=== PATIENT | male | born 1950 | race Caucasian/White ===

== ENCOUNTER 2018-08-19 10:57 | Outpatient (REF) | payer MEDICARE, SELFPAY ==
[2018-08-19 21:25] LABS: ALT 58 U/L (12-78); Anion Gap 11.3 mmol/L (3-11); BUN 27 mg/dL (7-18); CO2 26.7 mmol/L (21.0-32.0); CREATININE 1.65 mg/dL (0.70-1.30); Calcium 9.4 mg/dL (8.5-10.1); Chloride 99 mmol/L (98-107); Cholesterol 220 mg/dL (50-200); Estimated GFR 41.95 (mL/min/1.73m2); Glucose 165 mg/dL (70-100); HDL Cholesterol 37 mg/dL (40-60); LDL CHOLESTEROL 137 mg/dL (<100); Potassium 4.5 mmol/L (3.5-5.1); Sodium 137 mmol/L (136-145); Triglyceride 244 mg/dL (30-150)
[2018-08-19 21:31] LABS: COMMENT (LAB VIEW ONLY) 359.46 mg/dL; Microalb ug/mg Crea 5.2 ug/mg Cr
== END 2018-08-19 11:17 ==
LOC: NCHCN 10:57
PROVIDERS: PCP Family Medicine; Visit Provider Family Medicine
DX: I10 Essential (primary) hypertension (principal); E11.8 Type 2 diabetes mellitus with unspecified complications; E78.5 Hyperlipidemia, unspecified; E66.01 Morbid (severe) obesity due to excess calories
CPT/HCPCS: 80048; 80061; 83721; 82043; 82570; 84460

== ENCOUNTER 2018-12-17 13:13 | Outpatient (REF) | payer MEDICARE, SELFPAY ==
[2018-12-17 21:29] LABS: Abs Immature Grans 0.02 k/cumm (0.0-0.09); Absolute Basophil Count 0.04 k/cumm (0.0-0.2); Absolute Eosinophil Count 0.32 k/cumm (0.0-0.7); Absolute Lymphocyte Count 1.35 k/cumm (1.2-3.4); Absolute Monocyte Count 0.67 k/cumm (0.11-0.7); Absolute Neutrophil Count 3.59 k/cumm (1.2-6.7); Basophils % 0.7; Eosinophils % 5.3; HCT 40.5 % (40.0-50.0); HGB 13.2 g/dL (13.5-17.5); Immature Grans % 0.3; Lymphocytes % 22.5; Mean Corp. HGB Concentration 32.6 g/dL (32.0-36.0); Mean Corpuscular Hemoglobin 31.8 pg (27.0-33.0); Mean Corpuscular Volume 97.6 fL (80-95); Mean Platelet Volume 13.5 fL (8.0-11.0); Monocytes % 11.2; Platelet Count 164 x1000/uL (130-400); RBC 4.15 m/cumm (4.50-6.00); RBC Distribution Width 12.1 % (11.8-14.1); White Blood Cell Count 5.99 k/cumm (4.4-10.8)
[2018-12-17 22:05] LABS: TSH (W/Ref FT4) 0.67 uIU/mL (0.36-3.74); Vitamin B12 600 pg/mL (193-986)
[2018-12-20 05:55] LABS: Vitamin D 25 Total 45.9 ng/ml (30-100)
== END 2018-12-17 13:33 ==
LOC: NCHCN 13:13
PROVIDERS: PCP Family Medicine; Visit Provider Nurse Practitioner Family
DX: F41.8 Other specified anxiety disorders (principal); F51.05 Insomnia due to other mental disorder; F12.10 Cannabis abuse, uncomplicated; E66.01 Morbid (severe) obesity due to excess calories; F10.21 Alcohol dependence, in remission
CPT/HCPCS: 82306; 82607; 84443; 85025

== ENCOUNTER 2019-10-18 20:33 | Outpatient (REF) | payer MEDICARE, SELFPAY ==
[2019-10-18 21:09] LABS: ALT 44 U/L (16-63); AST 20 U/L (15-37); Albumin 3.7 g/dL (3.4-5.0); Alkaline Phosphatase 98 U/L (46-116); Anion Gap 4.1 mmol/L (3-11); BUN 15 mg/dL (7-18); Bilirubin, Total 0.3 mg/dL (0.2-1.0); CO2 29.9 mmol/L (21.0-32.0); CREATININE 1.74 mg/dL (0.70-1.30); Calcium 8.9 mg/dL (8.5-10.1); Calculated LDL 124 mg/dL (<100); Chloride 102 mmol/L (98-107); Cholesterol 227 mg/dL (<200); Estimated GFR 39.33 (mL/min/1.73m2); Glucose 158 mg/dL (74-106); HDL Cholesterol 36 mg/dL (40-60); Potassium 4.7 mmol/L (3.5-5.1); Sodium 136 mmol/L (136-145); Total Protein 7.1 g/dL (6.4-8.2); Triglyceride 339 mg/dL (<150)
== END 2019-10-18 20:53 ==
LOC: NCHCN 20:33
PROVIDERS: PCP Family Medicine; Visit Provider Family Medicine
DX: I10 Essential (primary) hypertension (principal); E11.8 Type 2 diabetes mellitus with unspecified complications
CPT/HCPCS: 80053; 80061

== ENCOUNTER 2020-12-04 17:57 | Outpatient (REF) | payer MEDICARE, SELFPAY ==
[2020-12-04 22:55] LABS: COMMENT (LAB VIEW ONLY) 217.77 mg/dL; Microalb ug/mg Crea 6.2 ug/mg Cr
== END 2020-12-04 17:58 | disposition home or self-care (01) ==
LOC: NCHCN 17:57
PROVIDERS: PCP Family Medicine; Visit Provider Family Medicine
DX: E11.8 Type 2 diabetes mellitus with unspecified complications (principal)
CPT/HCPCS: 82043; 82570

== ENCOUNTER 2020-12-12 12:55 | Outpatient (REF) | payer MEDICARE, SELFPAY ==
[2020-12-12 21:59] LABS: Abs Immature Grans 0.03 10^3/uL (0.0-0.06); Absolute Basophil Count 0.07 10^3/uL (0.0-0.2); Absolute Eosinophil Count 0.17 10^3/uL (0.0-0.7); Absolute Lymphocyte Count 1.08 10^3/uL (1.2-3.4); Absolute Monocyte Count 0.68 10^3/uL (0.1-0.8); Absolute Neutrophil Count 4.98 10^3/uL (1.2-6.7); Eosinophils % 2.4; HCT 45.9 % (40.0-50.0); HGB 14.8 g/dL (13.5-17.5); Immature Grans % 0.4; Lymphocytes % 15.4; MCH 31.2 pg (27.0-33.0); MCHC 32.2 % (32.0-36.0); MCV 96.8 fL (80-95); MPV 12.8 fL (8.0-11.0); Monocytes % 9.7; Neutrophils % 71.1; Nucleated RBC 0 %; Platelet Count 212 10^3/uL (130-400); RBC 4.74 10^6/uL (4.36-5.78); RDW 12.5 % (11.8-14.1); RDW-SD 44.8 fL; WBC 7.01 10^3/uL (4.4-10.8)
[2020-12-12 22:11] LABS: ALT 47 U/L (16-63); AST 27 U/L (15-37); Albumin 4.5 g/dL (3.4-5.0); Alkaline Phosphatase 148 U/L (46-116); Anion Gap 14.3 mmol/L (3-11); BUN 25 mg/dL (7-18); CO2 24.7 mmol/L (21.0-32.0); CREATININE 1.8 mg/dL (0.70-1.30); Calcium 10.8 mg/dL (8.5-10.1); Chloride 98 mmol/L (98-107); Estimated GFR 37.71 (mL/min/1.73m2); Glucose 129 mg/dL (74-106); Potassium 4.5 mmol/L (3.5-5.1); Sodium 137 mmol/L (136-145); Total Protein 8.3 g/dL (6.4-8.2)
[2020-12-13 18:20] LABS: PSA, Screening 0.9 ng/mL (0.0-4.5)
== END 2020-12-12 12:56 | disposition home or self-care (01) ==
LOC: NCHCN 12:55
PROVIDERS: PCP Family Medicine; Visit Provider Internal Medicine
DX: F41.1 Generalized anxiety disorder (principal); M25.511 Pain in right shoulder; Z12.5 Encounter for screening for malignant neoplasm of prostate
CPT/HCPCS: 80053; 84153; 85025

== ENCOUNTER 2020-12-28 20:38 | Outpatient (REF) | payer MEDICARE, SELFPAY ==
[2020-12-31 13:48] LABS: Albumin 57.1 % (55.8-66.1); Total Protein 7.3 g/dL (6.3-8.2)
[2020-12-31 15:08] LABS: Immunotyping, Urine (See Note); Total Protein Urine 9 mg/dL (See Note)
== END 2020-12-28 20:39 | disposition home or self-care (01) ==
LOC: NCHCN 20:38
PROVIDERS: PCP Family Medicine; Visit Provider Family Medicine
DX: C79.51 Secondary malignant neoplasm of bone (principal); C80.1 Malignant (primary) neoplasm, unspecified; M25.511 Pain in right shoulder
CPT/HCPCS: 84156; 84166; 86335; 84165

== ENCOUNTER 2021-01-29 12:15 | Outpatient (RCR) | payer MEDICARE, SELFPAY ==
[2021-01-29 13:02] LABS: Abs Immature Grans 0.04 10^3/uL (0.0-0.06); Absolute Basophil Count 0.04 10^3/uL (0.0-0.2); Absolute Eosinophil Count 0.11 10^3/uL (0.0-0.7); Absolute Lymphocyte Count 1.07 10^3/uL (1.2-3.4); Absolute Monocyte Count 0.77 10^3/uL (0.1-0.8); Absolute Neutrophil Count 5.56 10^3/uL (1.2-6.7); Basophils % 0.5; Eosinophils % 1.4; HGB 12.3 g/dL (13.5-17.5); Immature Grans % 0.5; Lymphocytes % 14.1; MCH 30.9 pg (27.0-33.0); MCHC 31.5 % (32.0-36.0); MPV 12.3 fL (8.0-11.0); Monocytes % 10.1; Neutrophils % 73.4; Nucleated RBC 0 %; Platelet Count 183 10^3/uL (130-400); RBC 3.98 10^6/uL (4.36-5.78); RDW 12.5 % (11.8-14.1); RDW-SD 45.3 fL; WBC 7.59 10^3/uL (4.4-10.8)
[2021-01-29 13:23] LABS: ALT 29 U/L (16-63); AST 18 U/L (15-37); Albumin 3.8 g/dL (3.4-5.0); Alkaline Phosphatase 181 U/L (46-116); Anion Gap 10.2 mmol/L (3-11); BUN 12 mg/dL (7-18); Bilirubin, Total 0.8 mg/dL (0.2-1.0); CO2 25.8 mmol/L (21.0-32.0); CREATININE 1.5 mg/dL (0.70-1.30); Calcium 11.1 mg/dL (8.5-10.1); Chloride 103 mmol/L (98-107); Estimated GFR 46.54 (mL/min/1.73m2); FREE T4 1.13 ng/dL (0.76-1.46); Glucose 122 mg/dL (74-106); Potassium 3.5 mmol/L (3.5-5.1); Sodium 139 mmol/L (136-145); TSH 1.07 uIU/mL (0.36-3.74); Total Protein 7.9 g/dL (6.4-8.2)
== END 2021-02-14 23:59 | disposition home or self-care (01) ==
LOC: INF 12:15
PROVIDERS: PCP Family Medicine; Visit Provider Internal Medicine
DX: C64.1 Malignant neoplasm of right kidney, except renal pelvis (principal); R94.6 Abnormal results of thyroid function studies
CPT/HCPCS: 36415; 80053; 84439; 84443; 85025

== ENCOUNTER 2021-04-02 21:59 | Outpatient (REF) | payer MEDICARE, SELFPAY ==
[2021-04-02 21:56] LABS: BUN 8 mg/dL (7-18); CREATININE 0.9 mg/dL (0.70-1.30); Potassium 4.1 mmol/L (3.5-5.1)
== END 2021-04-02 22:00 | disposition home or self-care (01) ==
LOC: LBN 21:59
PROVIDERS: PCP Family Medicine; Visit Provider Family Medicine
DX: C64.9 Malignant neoplasm of unspecified kidney, except renal pelvis (principal)
CPT/HCPCS: 84520; 82565; 84132

== ENCOUNTER 2022-03-13 21:17 | Outpatient (REF) | payer MEDICARE, SELFPAY ==
[2022-03-13 21:27] LABS: Anion Gap 6.3 mmol/L (3-11); BUN 9 mg/dL (7-18); CO2 29.7 mmol/L (21.0-32.0); CREATININE 1.1 mg/dL (0.70-1.30); Calcium 9.2 mg/dL (8.5-10.1); Chloride 100 mmol/L (98-107); Estimated GFR 72.22 (mL/min/1.73m2); Glucose 114 mg/dL (74-106); Potassium 4.3 mmol/L (3.5-5.1); Sodium 136 mmol/L (136-145)
== END 2022-03-13 21:18 | disposition home or self-care (01) ==
LOC: NCHCN 21:17
PROVIDERS: PCP Family Medicine; Visit Provider Family Medicine
DX: I10 Essential (primary) hypertension (principal)
CPT/HCPCS: 80048

== ENCOUNTER 2022-08-28 13:25 | Outpatient (REF) | payer MEDICARE, MEDICAID, SELFPAY ==
--- NOTE | 2022-08-28 13:59 | DI.RAD_ITS ---
Exam(s) XR PORTABLE CHEST AP EXAM: XR PORTABLE CHEST AP CLINICAL HISTORY: PICC TECHNIQUE: 2D digital imaging was performed. COMPARISON: No exams were available for comparison FINDINGS: Exam is limited by patient body habitus. A PICC line is been placed via the right arm. The tip projects in the lower superior vena cava. LUNGS: Clear. No pleural abnormality seen. HEART: Enlarged. Tortuous. AORTA: Normal diameter. BONES: Cystic lesions in the clavicles. Partially visible lesion in the upper right humerus. Spine not well seen. Soft tissues: Limited evaluation. IMPRESSION: PICC line projects in superior vena cava. DATA REPOSITORY: RADIATION DOSE DELIVERED:
--- NOTE | 2022-08-28 15:43 | NUR.NOTE ---
MULTIPLE ATTEMPTS WEERE MADE TO DOCUMENT A PICC LINE THAT I INSERTED TODAY. SOMEWHERE IN THIS CHART IS THE INFORMATION RELAVENT TO THE PROCEDURE. TOWARD THE END OF MY PICC LINE DOCUMENTATIION THE COMPUTER FROZE. I HAVE ALL THE INFORMATION NEEDED IF YOU CAN'T FIND THE FORM IN HERE SOMEWHERE. WILLY CAMPBELL RN
== END 2022-08-28 13:26 | disposition home or self-care (01) ==
LOC: PTH 13:25
PROVIDERS: PCP Family Medicine; Visit Provider Nurse Practitioner
DX: C64.1 Malignant neoplasm of right kidney, except renal pelvis (principal); Z45.2 Encounter for adjustment and management of vascular access device; I51.7 Cardiomegaly; C79.51 Secondary malignant neoplasm of bone
CPT/HCPCS: 36569; 71045

== ENCOUNTER 2022-10-20 02:40 | Outpatient (RCR) | payer MEDICARE, MEDICAID, SELFPAY ==
[2022-10-20] MEDS: Alteplase 2 MG VIAL IJ (11:10)
[2022-10-20] MEDS: Water,Injection,Sterile 10 ML VIAL 2.2 ML IJ (11:10)
[2022-10-20] MEDS: Normal Saline Flush 10 ML SYR IVP (11:19)
== END 2022-11-14 23:59 | disposition home or self-care (01) ==
LOC: INF 02:40
PROVIDERS: PCP Family Medicine; Visit Provider Internal Medicine
DX: Z45.2 Encounter for adjustment and management of vascular access device (principal)
CPT/HCPCS: J2997

== ENCOUNTER 2022-10-31 07:43 | Outpatient (CLI) | payer MEDICARE, MEDICAID, SELFPAY ==
--- NOTE | 2022-10-31 17:25 | DI.RAD_ITS ---
Exam(s) XR PORTABLE CHEST AP POST LINE EXAM: XR PORTABLE CHEST AP POST LINE CLINICAL HISTORY: PICC placement. TECHNIQUE: 2D digital imaging was performed. COMPARISON: CR XR PORTABLE CHEST AP from 08/28/2022 FINDINGS: Single AP portable view. Left PICC line distal tip is at the SVC RA junction. Heart size is upper normal. The mediastinum is not widened. There is atelectasis platelike atelectasis in the lingular segment of the left lung. No confluent infiltrates. Healed right-sided rib fracture versus expansile lesion in lower right rib . There appears to be a healed fracture site in the proximal diaphysis of the humerus right-side. Expansile lytic lesion noted in the midshaft of the right clavicle. IMPRESSION: Findings as above. Recommend nonportable PA and lateral views when clinically possible. Expansile osseous lesions in the right clavicle and right rib cage. DATA REPOSITORY: RADIATION DOSE DELIVERED:
--- NOTE | 2022-10-31 17:51 | DI.VRAD_ITS ---
PROCEDURE INFORMATION: Exam: XR Chest Exam date and time: 10/31/2022 5:15 PM Age: 72 years old Clinical indication: Device placement; Picc; Additional info: Picc line placement TECHNIQUE: Imaging protocol: Radiologic exam of the chest. Views: 1 view. COMPARISON: CR XR PORTABLE CHEST AP 08/28/2022 2:50 PM FINDINGS: Tubes, catheters and devices: A left upper extremity PICC line is in position. The tip is appropriately placed with location at the superior cavoatrial junction. Lungs: Left basilar linear atelectasis. No acute lung infiltrates or edema. Pleural spaces: Unremarkable. No pleural effusion. No pneumothorax. Heart/Mediastinum: Normal heart size. Vasculature: Ectasia of the thoracic aorta. Bones/joints: Right posterior 8th and 9th rib lesions. Possibly old fractures with healing. Can not exclude focal rib lesions related to neoplasm. Recommend clinical correlation. Proximal right humerus with an appearance suggesting a healing old fracture. Degenerative thoracic spine features. Right clavicular expansile lesion concerning for a neoplastic process. IMPRESSION: 1. PICC line is well positioned via the left upper extremity with tip at the superior cavoatrial junction. 2. Left lung base linear atelectasis versus scarring. 3. Right posterior 8th and 9th ribs with irregularities which could represent old healing fractures. Possibility of focal rib lesions with expansion can not be excluded. Recommend clinical correlation. 4. Old right humeral fracture with healing changes. 5. Right clavicular expansile lesion concerning for a neoplastic process. Dictated and Authenticated by: Bandar Jenkins MD. Ordering:CELSO Pablo MD
== END 2022-10-31 07:44 | disposition home or self-care (01) ==
LOC: INF 07:47
PROVIDERS: PCP Family Medicine; Visit Provider Family Medicine
DX: C64.1 Malignant neoplasm of right kidney, except renal pelvis (principal); G89.3 Neoplasm related pain (acute) (chronic)
CPT/HCPCS: 36569; 71045

== ENCOUNTER 2023-01-26 01:40 | Outpatient (RCR) | payer MEDICARE, MEDICAID, SELFPAY ==
--- NOTE | 2023-01-26 12:15 | DI.RAD_ITS ---
Exam(s) XR PORTABLE CHEST AP POST LINE EXAM: XR PORTABLE CHEST AP POST LINE CLINICAL HISTORY: VERIFY PICC PLACEMENT. TECHNIQUE: 2D digital imaging was performed. COMPARISON: CR,XR XR PORTABLE CHEST AP POST LINE from 10/31/2022 FINDINGS: Two AP portable views. Cardiomegaly. Is times not widened. There is some mild infiltrate in the right lung base. Left kortney g clear. Distal tip of PICC line is in the lower SVC on 1 image and at the SVC-RA junction on the ot her image. IMPRESSION: PICC line in satisfactory position. Mild infiltrate noted in the right lung base. DATA REPOSITORY: RADIATION DOSE DELIVERED:
--- NOTE | 2023-01-26 12:30 | DI.RAD_ITS ---
Exam(s) XR LINE PLACEMENT PICC/CVA EXAM: XR LINE PLACEMENT PICC/CVA CLINICAL HISTORY: recheck PICC line placement. TECHNIQUE: 2D digital imaging was performed. COMPARISON: CR XR PORTABLE CHEST AP POST LINE from 01/26/2023 FINDINGS: Portable view reveals the PICC line slightly lower than on the original view performed few minutes pr ior. Cardiomegaly again noted. Mild infiltrate in the right lung base. Mildly elevated right hemidiaphra gm. No pleural effusions. No pneumothorax. Distal tip of the PICC line is now the SVC-RA junction. IMPRESSION: As above. DATA REPOSITORY: RADIATION DOSE DELIVERED:
== END 2023-02-14 23:59 | disposition home or self-care (01) ==
LOC: INF 01:40
PROVIDERS: PCP Family Medicine; Visit Provider Family Medicine
DX: C64.1 Malignant neoplasm of right kidney, except renal pelvis (principal)
CPT/HCPCS: 36569; 36573; 71045; 77001

== ENCOUNTER 2023-05-26 11:06 | Inpatient (IN) | payer OTHER, SELFPAY ==
--- OUTSIDE RECORDS SUMMARY | 2023-05-26 12:07 | XMS_ITS | CCD ---
Author Name Unknown Address [address] [place] [address] [id number] Organization Unknown Address [address] [place] [address] [id number] Care Team Providers Care Special Technical Operations Officer Name Role Phone SONIDO PEREIRA, TORIE Abebe Attending Physician [phone] KEIKO ROLAND MD Er Physician [phone] KEIKO ROLAND MD Rounding (Secondary) Physician [phone] Vital Signs Vital Sign Value Unit Date/Time Recent/Initial ? BMI (Body Mass Index) 36.45 kg/m^2 02/04/2021 22: 43 Initial VS Weight Measured 239.7 lbs 02/04/2021 22:43 Ini tial VS Height 68 in 02/04/2021 22:43 Initial VS BSA (Body Surface Area) 2.28 m^2 02/04/2021 2 2:43 Initial VS BP Systolic 135 mmHg 02/04/2021 22:56 Initial VS BP Diastolic 63 mmHg 02/04/2021 22:56 Initia l VS Respiratory Rate 16 bpm 02/04/2021 22:56 In itial VS Heart Rate 79 bpm 02/04/2021 22:56 Initial VS O2 % BldC Oximetry 94 % 02/04/2021 22:56 Initial VS Body Temperature 36.3 degrees 02/04/2021 22:56 In itial VS Weight Measured 233.1 lbs 02/12/2021 15:06 Mos t Recent VS BP Systolic 142 mmHg 02/14/2021 09:01 Most Re cent VS BP Diastolic 66 mmHg 02/14/2021 09:01 Most R ecent VS Respiratory Rate 18 bpm 02/14/2021 09:[address] Recent VS Heart Rate 90 bpm 02/14/2021 09:01 Most Rec ent VS O2 % BldC Oximetry 91 % 02/14/2021 09:01 Most Recent VS Body Temperature 36.6 degrees 02/14/2021 09:[address] Recent VS Allergies Allergy Code Allergy Type Reaction Status LITHIUM 6448 Drug allergy IT DIDN'T GO WELL Act justen Procedures Unknown or Not Available. History of Immunizations Unknown or Not Available. Problems Problem Code Start Date Resolved Date Status Pathological fracture of rig ht humerus [id number] Active Pathological fracture of right rib [id number] Active Metastasis to bone 20324705 Active Renal cell carcinoma 513845190 Acti ve Cancer associated pain 04054375991701 Active Results BASIC METABOLIC PANEL (BMP) - Collect Date/Time: 02/05/2021 10:55 Test Name Code Test Result Test Units Test Ref Rang e GLUCOSE 2345-7 117 mg/dL L=70 H=116 BUN 3094-0 12 mg/dL L=6 H=25 CREATININE 2160-0 1.16 mg/dL L=0.67 H=1.17 SODIUM SERUM 2951-2 137 mmol/L L=136 H=145 POTASSIUM SERUM 2823-3 3.5 mmol/L L=3.4 H=5 .2 CHLORIDE SERUM 2075-0 99 mmol/L L=96 H=110 CARBON DIOXIDE (CO2) 8-9 25 mmol/L L=22 H=34 ANION GAP 00929-5 13.3 mmol/L CALCIUM SERUM 57131-6 7.5 mg/dL L=8.2 H=10. 2 AGE 70 years eGFR (non-Afr.Amer.) 58291-5 63 mL/min eGFR (Afr-Gabonese) 68845-4 76 mL/min BASIC METABOLIC PANEL (BMP) - Collect Date/Time: 02/04/2021 14:10 Test Name Code Test Result Test Units Test Ref Rang e GLUCOSE 2345-7 128 mg/dL L=70 H=116 BUN 3094-0 9 mg/dL L=6 H=25 CREATININE 2160-0 1.23 mg/dL L=0.67 H=1.17 SODIUM SERUM 2951-2 140 mmol/L L=136 H=145 POTASSIUM SERUM 2823-3 3.3 mmol/L L=3.4 H=5 .2 CHLORIDE SERUM 2075-0 101 mmol/L L=96 H=110 CARBON DIOXIDE (CO2) 2027-9 22 mmol/L L=22 H=34 ANION GAP 81534-5 17.1 mmol/L CALCIUM SERUM 83128-1 8.0 mg/dL L=8.2 H=10. 2 AGE 70 years eGFR (non-Afr.Amer.) 45812-5 59 mL/min eGFR (Afr-Gabonese) 93866-2 71 mL/min GLUCOSE FINGER/HEEL CAPILLAR Y - Collect Date/Time: 02/11/2021 11:53 Test Name Code Test Result Test Units Test Ref Rang e GLUCOSE CAP 125 mg/dL L=70 H=116 GLUCOSE FINGER/HEEL CAPILLAR Y - Collect Date/Time: 02/11/2021 08:02 Test Name Code Test Result Test Units Test Ref Rang e GLUCOSE CAP 101 mg/dL L=70 H=116 GLUCOSE FINGER/HEEL CAPILLAR Y - Collect Date/Time: 02/08/2021 20:18 Test Name Code Test Result Test Units Test Ref Rang e GLUCOSE CAP 121 mg/dL L=70 H=116 GLUCOSE FINGER/HEEL CAPILLAR Y - Collect Date/Time: 02/08/2021 16:37 Test Name Code Test Result Test Units Test Ref Rang e GLUCOSE CAP 108 mg/dL L=70 H=116 GLUCOSE FINGER/HEEL CAPILLAR Y - Collect Date/Time: 02/08/2021 12:02 Test Name Code Test Result Test Units Test Ref Rang e GLUCOSE CAP 110 mg/dL L=70 H=116 GLUCOSE FINGER/HEEL CAPILLAR Y - Collect Date/Time: 02/08/2021 07:50 Test Name Code Test Result Test Units Test Ref Rang e GLUCOSE CAP 94 mg/dL L=70 H=116 GLUCOSE FINGER/HEEL CAPILLAR Y - Collect Date/Time: 02/07/2021 20:46 Test Name Code Test Result Test Units Test Ref Rang e GLUCOSE CAP 120 mg/dL L=70 H=116 GLUCOSE FINGER/HEEL CAPILLAR Y - Collect Date/Time: 02/07/2021 17:24 Test Name Code Test Result Test Units Test Ref Rang e GLUCOSE CAP 111 mg/dL L=70 H=116 GLUCOSE FINGER/HEEL CAPILLAR Y - Collect Date/Time: 02/07/2021 12:34 Test Name Code Test Result Test Units Test Ref Rang e GLUCOSE CAP 124 mg/dL L=70 H=116 GLUCOSE FINGER/HEEL CAPILLAR Y - Collect Date/Time: 02/07/2021 07:24 Test Name Code Test Result Test Units Test Ref Rang e GLUCOSE CAP 96 mg/dL L=70 H=116 GLUCOSE FINGER/HEEL CAPILLAR Y - Collect Date/Time: 02/06/2021 16:49 Test Name Code Test Result Test Units Test Ref Rang e GLUCOSE CAP 168 mg/dL L=70 H=116 GLUCOSE FINGER/HEEL CAPILLAR Y - Collect Date/Time: 02/06/2021 11:44 Test Name Code Test Result Test Units Test Ref Rang e GLUCOSE CAP 119 mg/dL L=70 H=116 GLUCOSE FINGER/HEEL CAPILLAR Y - Collect Date/Time: 02/06/2021 07:30 Test Name Code Test Result Test Units Test Ref Rang e GLUCOSE CAP 86 mg/dL L=70 H=116 GLUCOSE FINGER/HEEL CAPILLAR Y - Collect Date/Time: 02/05/2021 20:50 Test Name Code Test Result Test Units Test Ref Rang e GLUCOSE CAP 110 mg/dL L=70 H=116 GLUCOSE FINGER/HEEL CAPILLAR Y - Collect Date/Time: 02/05/2021 16:59 Test Name Code Test Result Test Units Test Ref Rang e GLUCOSE CAP 107 mg/dL L=70 H=116 GLUCOSE FINGER/HEEL CAPILLAR Y - Collect Date/Time: 02/05/2021 12:30 Test Name Code Test Result Test Units Test Ref Rang e GLUCOSE CAP 115 mg/dL L=70 H=116 CBC W/ DIFFERENTIAL - Collec t Date/Time: 02/05/2021 10:55 Test Name Code Test Result Test Units Test Ref Rang e WBC 6690-2 7.71 th/cmm L=5.00 H=10.00 NEUT % 66.7 % L=40.0 H=80.0 LYMPH % 15.7 % L=10.0 H=50.0 MONO % 46938-6 15.0 % L=2.0 H=12.0 EOS % 1.7 % L=0.0 H=8.0 BASO % 0.6 % L=0.0 H=3.0 IG % 2514-8 0.3 % L=0.0 H=1.1 NRBC % 42298-4 0.0 % L=0.0 H=0.0 NEUT abs count 751-8 5.1 th/cmm L=1.6 H=8. 4 LYMPH abs count 731-0 1.2 th/cmm L=1.5 H=4 .0 MONO abs count 742-7 1.2 th/cmm L=0.2 H=1. 0 EOS abs count 711-2 0.1 th/cmm L=0.0 H=0.5 BASO abs count 704-7 0.1 th/cmm L=0.0 H=0. 2 IG abs count 93223-4 0.0 th/cmm L=0.0 H=0.1 NRBC abs count 17293-2 0.0 mil/cmm L=0.0 H=0. 0 RBC 789-8 3.65 mil/cmm L=4.30 H=6.20 HEMOGLOBIN 718-7 11.3 gm/dL L=13.0 H=17.0 HEMATOCRIT 4544-3 35 % L=45 H=52 MCV 787-2 97 fL L=82 H=92 MCH 785-6 31.0 pg L=27.0 H=31.0 MCHC 786-4 32.0 % L=32.0 H=36.0 RDW-SD 788-0 46.7 fL L=39.0 H=49.0 PLATELET COUNT 777-3 188 th/cmm L=150 H=45 0 CBC W/ DIFFERENTIAL - Collec t Date/Time: 02/04/2021 14:10 Test Name Code Test Result Test Units Test Ref Rang e WBC 6690-2 9.01 th/cmm L=5.00 H=10.00 NEUT % 81.5 % L=40.0 H=80.0 LYMPH % 7.7 % L=10.0 H=50.0 MONO % 15403-6 9.5 % L=2.0 H=12.0 EOS % 0.3 % L=0.0 H=8.0 BASO % 0.7 % L=0.0 H=3.0 IG % 2514-8 0.3 % L=0.0 H=1.1 NRBC % 49975-4 0.0 % L=0.0 H=0.0 NEUT abs count 751-8 7.3 th/cmm L=1.6 H=8. 4 LYMPH abs count 731-0 0.7 th/cmm L=1.5 H=4 .0 MONO abs count 742-7 0.9 th/cmm L=0.2 H=1. 0 EOS abs count 711-2 0.0 th/cmm L=0.0 H=0.5 BASO abs count 704-7 0.1 th/cmm L=0.0 H=0. 2 IG abs count 61960-3 0.0 th/cmm L=0.0 H=0.1 NRBC abs count 35526-5 0.0 mil/cmm L=0.0 H=0. 0 RBC 789-8 3.85 mil/cmm L=4.30 H=6.20 HEMOGLOBIN 718-7 11.8 gm/dL L=13.0 H=17.0 HEMATOCRIT 4544-3 37 % L=45 H=52 MCV 787-2 97 fL L=82 H=92 MCH 785-6 30.6 pg L=27.0 H=31.0 MCHC 786-4 31.6 % L=32.0 H=36.0 RDW-SD 788-0 46.5 fL L=39.0 H=49.0 PLATELET COUNT 777-3 198 th/cmm L=150 H=45 0 DONTE COVID RHEONIX - Colle ct Date/Time: 02/04/2021 20:30 Test Name Code Test Result Test Units Test Ref Rang e SOURCE= Anterior nasal N/A Tier- INPATIENT/ED N/A SARS COV2 RNA: 57596-3 NEGATIVE N/A REFERENCE RANGE: NEGAT Active Medications Medication Code Dose Units Frequency Route Modificatio n Start Date/Time Acetaminophen 500MG Oral Tablet 979682 2 TABLET NEEDED THREE TIMES A DAY ORAL 02/14/2021 14:16 Prescription Detail TAKE 2 TABLET ORAL NEEDED THREE TIMES A DAY Aspirin 81MG Oral Tablet, Enteric Coated 029544 81 MILLIGRAMS DAILY ORAL 01/18 14:15 Prescription Detail TAKE 81 MILLIGRAMS ORAL DAILY Atorvastatin Calcium 80MG Oral Tablet 244879 80 MILLIGRAMS BEDTIME ORAL 021 14:15 Prescription Detail TAKE 80 MILLIGRAMS ORAL BEDTIME busPIRone 15MG Oral Tablet 092702 1.5 TABLET TWICE A DAY ORAL 02/14/2021 14:15 Prescription Detail TAKE 1.5 TABLET ORAL TWICE A DAY Citalopram 40MG Oral Tablet 415249 40 MILLIGRAMS DAILY ORAL 14:15 Prescription Detail TAKE 40 MILLIGRAMS ORAL DAILY fentaNYL Transdermal System 25MCG/1HR Transdermal Patch, Extended Release 926160 25 MICROGRAM EVERY 72 HOURS TRANSDERMAL 02/14/2021 14:15 Prescription Detail APPLY 25 MICROGRAM TRANSDERMAL EVERY 72 HOURS glipiZIDE 5MG Oral Tablet 490145 5 MILLIGRAMS EVERY EVENING ORAL 02/14/2021 14:15 Prescription Detail TAKE 5 MILLIGRAMS ORAL EVERY EVENING HYDROmorphone HCl 4MG Oral Tablet 098865 1 TABLET NEEDED EVERY 4 HOURS ORAL 02/14/2021 14:15 Prescription Detail TAKE 1 TABLET ORAL NEEDED EVERY 4-6 H OURS FOR PAIN Jardiance 25MG Oral Tablet 2531359 25 MILLIGRAMS DAILY ORAL 021 14:15 Prescription Detail TAKE 25 MILLIGRAMS ORAL DAILY Metoprolol Succinate 25MG Oral Tablet, Extended Release 614446 25 MILLIGRAMS DAILY ORAL 14:15 Prescription Detail TAKE 25 MILLIGRAMS ORAL DAILY Mirtazapine 15MG Oral Tablet 756233 15 MILLIGRAMS BEDTIME ORAL 14:15 Prescription Detail TAKE 15 MILLIGRAMS ORAL BEDTIME Omeprazole 20MG Oral Capsule, Delayed Release 921674 20 MILLIGRAMS DAILY ORAL 14:15 Prescription Detail TAKE 20 MILLIGRAMS ORAL DAILY fentaNYL Transdermal System 100MCG/1HR Transdermal Patch, Extended Release 868006 100 MICROGRAM EVERY 72 HOURS TRANSDERMAL 02/14/2021 14:14 Prescription Detail APPLY 100 MICROGRAM TRANSDERMAL EVERY 72 HOURS Senna Lax 8.6MG Oral Tablet 198484 8.6 MILLIGRAMS TWICE A DAY ORAL 02/14/2021 14:14 Prescription Detail TAKE 8.6 MILLIGRAMS ORAL TWICE A DAY Valium 5MG Oral Tablet 797312 1 TABLET NEEDED THREE TIMES A DAY ORAL 02/14/2021 14:14 Prescription Detail TAKE 1 TABLET ORAL NEEDED THREE TIMES A DAY FOR MUSCLE SPASM OR ANXIETY PEG 3350 17GM/1Dose Oral Powder for Solution 093625 17 GRAMS NEEDED DAILY ORAL 02/14/2021 14:13 Prescription Detail TAKE 17 GRAMS ORAL NEEDED DAILY FOR C ONSTIPATION Medications Administered During Visit Medication Dose Units Frequency Route Date/Time of Last Dose SODIUM CHLORIDE 0.9% 10ML FLUSH 2 ML Q8H IVP 02/09/2021 16:5 6 ACETAMINOPHEN INJ SDV: 1000MG/100ML PRN Q6H IVPB 02/09/2021 16:4 2 HYDROmorphone INJ SYRINGE: 0.5MG/0.5ML 1 MG PRN Q1H IVP 02/06/2021 20:3 8 SENNA CONC TABLET: 8.6MG 8.6 MG PRN DAILY PO 02/05/2021 17:41 POLYETHYLENE GLYCOL PACKET 3350:17GM 17 GRAMS PRN DAILY PO 02/05/2021 17:4 1 LORazepam INJ SYRINGE: 2MG/ML 0.5 MG PRN Q4H IVP 02/05/2021 05:5 3 FentaNYL TRANSDERMAL PATCH: 25MCG/HR 25 MCG Q72H TRANSDERMAL 02/04/2021 22:3 3 FentaNYL PATCH NURSING VERIFICATION 1 EA Q8H TRANSDERMAL 02/14/2021 08:3 4 MIRTAZAPINE ORAL DISINT TABLET: 15MG 15 MG BEDTIME PO 02/13/2021 19:2 1 PANTOPRAZOLE TABLET: 40MG 40 MG Q7AM PO 02/14/2021 08:30 METOPROLOL SUCCINATE TABLET ER: 25MG 25 MG DAILY PO 02/14/2021 08:3 1 CITALOPRAM TABLET: 20MG 40 MG DAILY PO 02/14/2021 08:30 ASPIRIN TABLET E.C.: 81MG 81 MG DAILY PO 02/14/2021 08:30 ATORVASTATIN TABLET: 40MG 80 MG BEDTIME PO 02/13/2021 19:21 BusPIRone TABLET : 15MG 22.5 MG BID PO 02/14/2021 08:31 MIRTAZAPINE ORAL DISINT TABLET: 15MG 15 MG X1 PO 02/04/2021 23:1 2 BusPIRone TABLET : 15MG 22.5 MG X1 PO 02/04/2021 23:12 GlipiZIDE TABLET: 5MG 5 MG BEDTIME PO 02/13/2021 19:51 NF-Jardiance Oral Tablet 25MG 25 MG DAILY PO 02/14/2021 08:3 3 INSULIN LISPRO INJ MDV: 1000UNITS/10ML PRN SUBCUTANEOUSLY 02/08/2021 20:28 FentaNYL TRANSDERMAL PATCH: 50MCG/HR 50 MCG Q72H TRANSDERMAL 02/05/2021 17:1 9 DIAZEPAM TABLET: 5MG 5 MG PRN Q4H PO 02/08/2021 00:14 SENNA CONC TABLET: 8.6MG 8.6 MG BID PO 02/14/2021 08:31 FentaNYL TRANSDERMAL PATCH: 100MCG/HR 100 MCG Q72H TRANSDERMAL 02/12/2021 16:4 4 HYDROmorphone TABLET: 4MG 4 MG PRN Q4H PO 02/14/2021 16:25 DIAZEPAM TABLET: 5MG 5 MG PRN Q4H PO 02/13/2021 23:36 ACETAMINOPHEN TABLET: 325MG 975 MG PRN Q6H PO 02/14/2021 08:30 FentaNYL PATCH REMOVAL REMINDER 1 EA Q72H TRANSDERMAL 02/12/2021 16:4 6 MORPHINE INJ SYRINGE: 10MG/ML 10 MG X1 SUBQ 02/12/2021 02:3 0 FentaNYL TRANSDERMAL PATCH: 100MCG/HR 100 MCG Q72H TRANSDERMAL 02/13/2021 12:3 9 FentaNYL TRANSDERMAL PATCH: 25MCG/HR 25 MCG Q72H TRANSDERMAL 02/13/2021 12:3 9 Encounters Encounter Diagnosis Diagnosis Code Start Date Pathological fracture, right humerus, initial encounter for fracture [id number] 02/06/2021 Social History Smoking Status Code Start Date End Date Former smoker [id number] Patient Decision Aids Patient Decision Aid Narcotic Safety Discharge Instructions You were admitted to [facility] on 02/06/2021 12:31 with a principal diagnosis of Pathological fracture, right humerus, initial encounter for fracture You had the following tests done:GLUCOSE FINGER/HEEL CAPILLARYGLUCOSE FINGER/HEEL CAPILLARYGLUCOSE FINGER/HEEL CAPILLARYGLUCOSE FINGER/HEEL CAPILLARYGLUCOSE FINGER/HEEL CAPILLARYGLUCOSE FINGER/HEEL CAPILLARYGLUCOSE FINGER/HEEL CAPILLARYGLUCOSE FINGER/HEEL CAPILLARYGLUCOSE FINGER/HEEL CAPILLARYGLUCOSE FINGER/HEEL CAPILLARYGLUCOSE FINGER/HEEL CAPILLARYGLUCOSE FINGER/HEEL CAPILLARYGLUCOSE FINGER/HEEL CAPILLARYGLUCOSE FINGER/HEEL CAPILLARYGLUCOSE FINGER/HEEL CAPILLARYGLUCOSE FINGER/HEEL CAPILLARYBASIC METABOLIC PANEL (BMP)CBC W/ [facility]ENTIALW[facility] COVID RHEONIXBASIC METABOLIC PANEL (BMP)CBC W/ DIFFERENTIAL You were discharged from [facility] on 02/14/2021 16:30 Should you have any questions prior to discharge, please contact a member of your healthcare team. If you have left the hospital and have any questions, please contact your primary care physician. Chief Complaint and Reason For Visit Chief Complaint Date of Onset BONE METS WITH MULTIPLE PATHOLOGICAL FRA CTURES 02/04/2021 Function Status Unknown or Not Available. Plan of Care Unknown or Not Available. Referral/Transition of Care Unknown or Not Available.
--- OUTSIDE RECORDS SUMMARY | 2023-05-26 12:07 | XMS_ITS | CCD ---
Author Name Unknown Address [address] [place] [address] [id number] Organization Unknown Address [address] [place] [address] [id number] Care Team Providers Care Real Estate Services Coordinator Name Role Phone SONIDO PEREIRA, TORIE Abebe Attending Physician [phone] KEIKO ROLAND MD Rounding (Secondary) Physician [phone] Vital Signs Unknown or Not Available. Allergies Allergy Code Allergy Type Reaction Status LITHIUM 6448 Drug allergy IT DIDN'T GO WELL Act justen Procedures Unknown or Not Available. History of Immunizations Unknown or Not Available. Problems Problem Code Start Date Resolved Date Status Pathological fracture of rig ht humerus [id number] Active Pathological fracture of rig ht rib 11110677660292022 Active Metastasis to bone 19739198 Active Renal cell carcinoma 532944010 Acti ve Cancer associated pain 31018877056332 Active CARPAL TUNNEL SYNDROME 95450797 02/05/2021 Re solved Results Unknown or Not Available. Active Medications Medication Code Dose Units Frequency Route Modificatio n Start Date/Time Acetaminophen 500MG Oral Tablet 207649 2 TABLET NEEDED THREE TIMES A DAY ORAL 02/14/2021 14:16 Prescription Detail TAKE 2 TABLET ORAL NEEDED THREE TIMES A DAY Aspirin 81MG Oral Tablet, Enteric Coated 261013 81 MILLIGRAMS DAILY ORAL 01/18 14:15 Prescription Detail TAKE 81 MILLIGRAMS ORAL DAILY Atorvastatin Calcium 80MG Oral Tablet 804743 80 MILLIGRAMS BEDTIME ORAL 021 14:15 Prescription Detail TAKE 80 MILLIGRAMS ORAL BEDTIME busPIRone 15MG Oral Tablet 494793 1.5 TABLET TWICE A DAY ORAL 02/14/2021 14:15 Prescription Detail TAKE 1.5 TABLET ORAL TWICE A DAY Citalopram 40MG Oral Tablet 844185 40 MILLIGRAMS DAILY ORAL 14:15 Prescription Detail TAKE 40 MILLIGRAMS ORAL DAILY fentaNYL Transdermal System 25MCG/1HR Transdermal Patch, Extended Release 011714 25 MICROGRAM EVERY 72 HOURS TRANSDERMAL 02/14/2021 14:15 Prescription Detail APPLY 25 MICROGRAM TRANSDERMAL EVERY 72 HOURS glipiZIDE 5MG Oral Tablet 691120 5 MILLIGRAMS EVERY EVENING ORAL 02/14/2021 14:15 Prescription Detail TAKE 5 MILLIGRAMS ORAL EVERY EVENING HYDROmorphone HCl 4MG Oral Tablet 760239 1 TABLET NEEDED EVERY 4 HOURS ORAL 02/14/2021 14:15 Prescription Detail TAKE 1 TABLET ORAL NEEDED EVERY 4-6 H OURS FOR PAIN Jardiance 25MG Oral Tablet 2665718 25 MILLIGRAMS DAILY ORAL 021 14:15 Prescription Detail TAKE 25 MILLIGRAMS ORAL DAILY Metoprolol Succinate 25MG Oral Tablet, Extended Release 458485 25 MILLIGRAMS DAILY ORAL 14:15 Prescription Detail TAKE 25 MILLIGRAMS ORAL DAILY Mirtazapine 15MG Oral Tablet 469101 15 MILLIGRAMS BEDTIME ORAL 14:15 Prescription Detail TAKE 15 MILLIGRAMS ORAL BEDTIME Omeprazole 20MG Oral Capsule, Delayed Release 013739 20 MILLIGRAMS DAILY ORAL 14:15 Prescription Detail TAKE 20 MILLIGRAMS ORAL DAILY fentaNYL Transdermal System 100MCG/1HR Transdermal Patch, Extended Release 700415 100 MICROGRAM EVERY 72 HOURS TRANSDERMAL 02/14/2021 14:14 Prescription Detail APPLY 100 MICROGRAM TRANSDERMAL EVERY 72 HOURS Senna Lax 8.6MG Oral Tablet 621811 8.6 MILLIGRAMS TWICE A DAY ORAL 02/14/2021 14:14 Prescription Detail TAKE 8.6 MILLIGRAMS ORAL TWICE A DAY Valium 5MG Oral Tablet 398210 1 TABLET NEEDED THREE TIMES A DAY ORAL 02/14/2021 14:14 Prescription Detail TAKE 1 TABLET ORAL NEEDED THREE TIMES A DAY FOR MUSCLE SPASM OR ANXIETY PEG 3350 17GM/1Dose Oral Powder for Solution 812087 17 GRAMS NEEDED DAILY ORAL 02/14/2021 14:13 Prescription Detail TAKE 17 GRAMS ORAL NEEDED DAILY FOR C ONSTIPATION Medications Administered During Visit Unknown or Not Available. Encounters Encounter Diagnosis Diagnosis Code Start Date Malignant neoplasm of unspec ified kidney, except renal pelvis C649 02/04/2021 Social History Unknown or Not Available. Patient Decision Aids Unknown or Not Available. Discharge Instructions You were admitted to [facility] 01 on 02/04/2021 21:10 with a principal diagnosis of Malignant neoplasm of unspecified kidney, except renal pelvis You were discharged from [facility] 01 on 02/06/2021 12:31 Should you have any questions prior to discharge, please contact a member of your healthcare team. If you have left the hospital and have any questions, please contact your primary care physician. Chief Complaint and Reason For Visit Unknown or Not Available. Function Status Unknown or Not Available. Plan of Care Unknown or Not Available. Referral/Transition of Care Unknown or Not Available.
--- OUTSIDE RECORDS SUMMARY | 2023-05-26 12:07 | XMS_ITS | CCD ---
Author Name Unknown Address [address] [place] [address] [phone] Organization Unknown Address [address] [place] [address] [phone] Care Team Providers Care Optometric Assistant Name Role Phone CLIVE HALL MD Attending Physician [phone] Vital Signs Unknown or Not Available. Allergies Unknown or Not Available. Procedures Unknown or Not Available. History of Immunizations Unknown or Not Available. Problems Problem Code Start Date Resolved Date Status Pathological fracture of rig ht humerus [id number] Active Pathological fracture of rig ht rib 51783202456322592 Active Metastasis to bone 46060418 Active Renal cell carcinoma 625707313 Acti ve Cancer associated pain 69568648654852 Active CARPAL TUNNEL SYNDROME 46994948 02/05/2021 Re solved Results Unknown or Not Available. Active Medications Medication Code Dose Units Frequency Route Modificatio n Start Date/Time Acetaminophen 500MG Oral Tablet 230091 2 TABLET NEEDED THREE TIMES A DAY ORAL 02/14/2021 14:16 Prescription Detail TAKE 2 TABLET ORAL NEEDED THREE TIMES A DAY Aspirin 81MG Oral Tablet, Enteric Coated 244972 81 MILLIGRAMS DAILY ORAL 01/18 14:15 Prescription Detail TAKE 81 MILLIGRAMS ORAL DAILY Atorvastatin Calcium 80MG Oral Tablet 148409 80 MILLIGRAMS BEDTIME ORAL 021 14:15 Prescription Detail TAKE 80 MILLIGRAMS ORAL BEDTIME busPIRone 15MG Oral Tablet 951247 1.5 TABLET TWICE A DAY ORAL 02/14/2021 14:15 Prescription Detail TAKE 1.5 TABLET ORAL TWICE A DAY Citalopram 40MG Oral Tablet 773615 40 MILLIGRAMS DAILY ORAL 14:15 Prescription Detail TAKE 40 MILLIGRAMS ORAL DAILY fentaNYL Transdermal System 25MCG/1HR Transdermal Patch, Extended Release 134693 25 MICROGRAM EVERY 72 HOURS TRANSDERMAL 02/14/2021 14:15 Prescription Detail APPLY 25 MICROGRAM TRANSDERMAL EVERY 72 HOURS glipiZIDE 5MG Oral Tablet 409244 5 MILLIGRAMS EVERY EVENING ORAL 02/14/2021 14:15 Prescription Detail TAKE 5 MILLIGRAMS ORAL EVERY EVENING HYDROmorphone HCl 4MG Oral Tablet 324700 1 TABLET NEEDED EVERY 4 HOURS ORAL 02/14/2021 14:15 Prescription Detail TAKE 1 TABLET ORAL NEEDED EVERY 4-6 H OURS FOR PAIN Jardiance 25MG Oral Tablet 2197873 25 MILLIGRAMS DAILY ORAL 021 14:15 Prescription Detail TAKE 25 MILLIGRAMS ORAL DAILY Metoprolol Succinate 25MG Oral Tablet, Extended Release 772235 25 MILLIGRAMS DAILY ORAL 14:15 Prescription Detail TAKE 25 MILLIGRAMS ORAL DAILY Mirtazapine 15MG Oral Tablet 005686 15 MILLIGRAMS BEDTIME ORAL 14:15 Prescription Detail TAKE 15 MILLIGRAMS ORAL BEDTIME Omeprazole 20MG Oral Capsule, Delayed Release 714471 20 MILLIGRAMS DAILY ORAL 14:15 Prescription Detail TAKE 20 MILLIGRAMS ORAL DAILY fentaNYL Transdermal System 100MCG/1HR Transdermal Patch, Extended Release 305574 100 MICROGRAM EVERY 72 HOURS TRANSDERMAL 02/14/2021 14:14 Prescription Detail APPLY 100 MICROGRAM TRANSDERMAL EVERY 72 HOURS Senna Lax 8.6MG Oral Tablet 332874 8.6 MILLIGRAMS TWICE A DAY ORAL 02/14/2021 14:14 Prescription Detail TAKE 8.6 MILLIGRAMS ORAL TWICE A DAY Valium 5MG Oral Tablet 273656 1 TABLET NEEDED THREE TIMES A DAY ORAL 02/14/2021 14:14 Prescription Detail TAKE 1 TABLET ORAL NEEDED THREE TIMES A DAY FOR MUSCLE SPASM OR ANXIETY PEG 3350 17GM/1Dose Oral Powder for Solution 963351 17 GRAMS NEEDED DAILY ORAL 02/14/2021 14:13 Prescription Detail TAKE 17 GRAMS ORAL NEEDED DAILY FOR C ONSTIPATION Medications Administered During Visit Unknown or Not Available. Encounters Encounter Diagnosis Diagnosis Code Start Date Disorder of shoulder [id number] 12/12/2020 Social History Smoking Status Code Start Date End Date Former smoker [id number] Patient Decision Aids Unknown or Not Available. Discharge Instructions You were admitted to [facility] on 12/12/2020 15:07 with a principal diagnosis of Shoulder lesion, unspecified, right shoulder You were discharged from [facility] on 12/12/2020 15:07 Should you have any questions prior to [...]
--- OUTSIDE RECORDS SUMMARY | 2023-05-26 12:07 | XMS_ITS | CCD ---
Author Name Unknown Address [address] [place] [address] [phone] Organization Unknown Address [address] [place] [address] [phone] Care Team Providers Care Sales Secretary Name Role Phone BRIANA PEREIRA, WINSTON LO Attending Physician [phone] BRIANA PEREIRA, WINSTON LO Er Physician [phone] Vital Signs Unknown or Not Available. Allergies Unknown or Not Available. Procedures Unknown or Not Available. History of Immunizations Unknown or Not Available. Problems Problem Code Start Date Resolved Date Status Pathological fracture of rig ht humerus [id number] Active Pathological fracture of rig ht rib 73947343776428019 Active Metastasis to bone 02442609 Active Renal cell carcinoma 248388736 Acti ve Cancer associated pain 40860712151591 Active CARPAL TUNNEL SYNDROME 52595982 02/05/2021 Re solved Results Unknown or Not Available. Active Medications Medication Code Dose Units Frequency Route Modificatio n Start Date/Time Acetaminophen 500MG Oral Tablet 755139 2 TABLET NEEDED THREE TIMES A DAY ORAL 02/14/2021 14:16 Prescription Detail TAKE 2 TABLET ORAL NEEDED THREE TIMES A DAY Aspirin 81MG Oral Tablet, Enteric Coated 344561 81 MILLIGRAMS DAILY ORAL 01/18 14:15 Prescription Detail TAKE 81 MILLIGRAMS ORAL DAILY Atorvastatin Calcium 80MG Oral Tablet 722980 80 MILLIGRAMS BEDTIME ORAL 021 14:15 Prescription Detail TAKE 80 MILLIGRAMS ORAL BEDTIME busPIRone 15MG Oral Tablet 470282 1.5 TABLET TWICE A DAY ORAL 02/14/2021 14:15 Prescription Detail TAKE 1.5 TABLET ORAL TWICE A DAY Citalopram 40MG Oral Tablet 596891 40 MILLIGRAMS DAILY ORAL 14:15 Prescription Detail TAKE 40 MILLIGRAMS ORAL DAILY fentaNYL Transdermal System 25MCG/1HR Transdermal Patch, Extended Release 449564 25 MICROGRAM EVERY 72 HOURS TRANSDERMAL 02/14/2021 14:15 Prescription Detail APPLY 25 MICROGRAM TRANSDERMAL EVERY 72 HOURS glipiZIDE 5MG Oral Tablet 852764 5 MILLIGRAMS EVERY EVENING ORAL 02/14/2021 14:15 Prescription Detail TAKE 5 MILLIGRAMS ORAL EVERY EVENING HYDROmorphone HCl 4MG Oral Tablet 665629 1 TABLET NEEDED EVERY 4 HOURS ORAL 02/14/2021 14:15 Prescription Detail TAKE 1 TABLET ORAL NEEDED EVERY 4-6 H OURS FOR PAIN Jardiance 25MG Oral Tablet 8000196 25 MILLIGRAMS DAILY ORAL 021 14:15 Prescription Detail TAKE 25 MILLIGRAMS ORAL DAILY Metoprolol Succinate 25MG Oral Tablet, Extended Release 905093 25 MILLIGRAMS DAILY ORAL 14:15 Prescription Detail TAKE 25 MILLIGRAMS ORAL DAILY Mirtazapine 15MG Oral Tablet 917021 15 MILLIGRAMS BEDTIME ORAL 14:15 Prescription Detail TAKE 15 MILLIGRAMS ORAL BEDTIME Omeprazole 20MG Oral Capsule, Delayed Release 982349 20 MILLIGRAMS DAILY ORAL 14:15 Prescription Detail TAKE 20 MILLIGRAMS ORAL DAILY fentaNYL Transdermal System 100MCG/1HR Transdermal Patch, Extended Release 929692 100 MICROGRAM EVERY 72 HOURS TRANSDERMAL 02/14/2021 14:14 Prescription Detail APPLY 100 MICROGRAM TRANSDERMAL EVERY 72 HOURS Senna Lax 8.6MG Oral Tablet 504560 8.6 MILLIGRAMS TWICE A DAY ORAL 02/14/2021 14:14 Prescription Detail TAKE 8.6 MILLIGRAMS ORAL TWICE A DAY Valium 5MG Oral Tablet 434054 1 TABLET NEEDED THREE TIMES A DAY ORAL 02/14/2021 14:14 Prescription Detail TAKE 1 TABLET ORAL NEEDED THREE TIMES A DAY FOR MUSCLE SPASM OR ANXIETY PEG 3350 17GM/1Dose Oral Powder for Solution 413527 17 GRAMS NEEDED DAILY ORAL 02/14/2021 14:13 Prescription Detail TAKE 17 GRAMS ORAL NEEDED DAILY FOR C ONSTIPATION Medications Administered During Visit Unknown or Not Available. Encounters Encounter Diagnosis Diagnosis Code Start Date Unspecified injury of muscle , fascia and tendon of other parts of biceps, right arm, initial encounter [id number] 02/04/20 21 Social History Smoking Status Code Start Date End Date Former smoker [id number] Patient Decision Aids Unknown or Not Available. Discharge Instructions You were admitted to [facility] on 02/03/2021 13:28 with a principal diagnosis of Unsp injury of musc/fasc/tend prt biceps, right arm, init You were discharged from [facility] on 02/03/2021 16:20 Should you have any questions prior to discharge, please contact a member of your healthcare team. If you have left the hospital and have any questions, please contact your primary care physician. Chief Complaint and Reason For Visit Chief Complaint Date of Onset RT SHOULDER PAIN 02/03/2021 Function Status Unknown or Not Available. Plan of Care Unknown or Not Available. Referral/Transition of Care Unknown or Not Available.
--- OUTSIDE RECORDS SUMMARY | 2023-05-26 12:07 | XMS_ITS | CCD ---
Author Name Unknown Address [address] [place] [address] [phone] Organization Unknown Address [address] [place] [address] [phone] Care Team Providers Care Physics Instructor Name Role Phone JUAN MIGUEL MARLENA Attending Physician [phone] Vital Signs Unknown or Not Available. Allergies Unknown or Not Available. Procedures Unknown or Not Available. History of Immunizations Unknown or Not Available. Problems Problem Code Start Date Resolved Date Status Pathological fracture of rig ht humerus 45350925253827663 Active Pathological fracture of rig ht rib 62519620991828762 Active Metastasis to bone 44677754 Active Renal cell carcinoma 887732591 Acti ve Cancer associated pain 92779922469243 Active CARPAL TUNNEL SYNDROME 56796898 02/05/2021 Re solved Results Unknown or Not Available. Active Medications Medication Code Dose Units Frequency Route Modificatio n Start Date/Time Acetaminophen 500MG Oral Tablet 740136 2 TABLET NEEDED THREE TIMES A DAY ORAL 02/14/2021 14:16 Prescription Detail TAKE 2 TABLET ORAL NEEDED THREE TIMES A DAY Aspirin 81MG Oral Tablet, Enteric Coated 892670 81 MILLIGRAMS DAILY ORAL 01/18 14:15 Prescription Detail TAKE 81 MILLIGRAMS ORAL DAILY Atorvastatin Calcium 80MG Oral Tablet 973694 80 MILLIGRAMS BEDTIME ORAL 021 14:15 Prescription Detail TAKE 80 MILLIGRAMS ORAL BEDTIME busPIRone 15MG Oral Tablet 356832 1.5 TABLET TWICE A DAY ORAL 02/14/2021 14:15 Prescription Detail TAKE 1.5 TABLET ORAL TWICE A DAY Citalopram 40MG Oral Tablet 932903 40 MILLIGRAMS DAILY ORAL 14:15 Prescription Detail TAKE 40 MILLIGRAMS ORAL DAILY fentaNYL Transdermal System 25MCG/1HR Transdermal Patch, Extended Release 834477 25 MICROGRAM EVERY 72 HOURS TRANSDERMAL 02/14/2021 14:15 Prescription Detail APPLY 25 MICROGRAM TRANSDERMAL EVERY 72 HOURS glipiZIDE 5MG Oral Tablet 640765 5 MILLIGRAMS EVERY EVENING ORAL 02/14/2021 14:15 Prescription Detail TAKE 5 MILLIGRAMS ORAL EVERY EVENING HYDROmorphone HCl 4MG Oral Tablet 431526 1 TABLET NEEDED EVERY 4 HOURS ORAL 02/14/2021 14:15 Prescription Detail TAKE 1 TABLET ORAL NEEDED EVERY 4-6 H OURS FOR PAIN Jardiance 25MG Oral Tablet 0303826 25 MILLIGRAMS DAILY ORAL 021 14:15 Prescription Detail TAKE 25 MILLIGRAMS ORAL DAILY Metoprolol Succinate 25MG Oral Tablet, Extended Release 515537 25 MILLIGRAMS DAILY ORAL 14:15 Prescription Detail TAKE 25 MILLIGRAMS ORAL DAILY Mirtazapine 15MG Oral Tablet 318784 15 MILLIGRAMS BEDTIME ORAL 14:15 Prescription Detail TAKE 15 MILLIGRAMS ORAL BEDTIME Omeprazole 20MG Oral Capsule, Delayed Release 946435 20 MILLIGRAMS DAILY ORAL 14:15 Prescription Detail TAKE 20 MILLIGRAMS ORAL DAILY fentaNYL Transdermal System 100MCG/1HR Transdermal Patch, Extended Release 189226 100 MICROGRAM EVERY 72 HOURS TRANSDERMAL 02/14/2021 14:14 Prescription Detail APPLY 100 MICROGRAM TRANSDERMAL EVERY 72 HOURS Senna Lax 8.6MG Oral Tablet 903314 8.6 MILLIGRAMS TWICE A DAY ORAL 02/14/2021 14:14 Prescription Detail TAKE 8.6 MILLIGRAMS ORAL TWICE A DAY Valium 5MG Oral Tablet 495557 1 TABLET NEEDED THREE TIMES A DAY ORAL 02/14/2021 14:14 Prescription Detail TAKE 1 TABLET ORAL NEEDED THREE TIMES A DAY FOR MUSCLE SPASM OR ANXIETY PEG 3350 17GM/1Dose Oral Powder for Solution 147742 17 GRAMS NEEDED DAILY ORAL 02/14/2021 14:13 Prescription Detail TAKE 17 GRAMS ORAL NEEDED DAILY FOR C ONSTIPATION Medications Administered During Visit Unknown or Not Available. Encounters Encounter Diagnosis Diagnosis Code Start Date Pain in right hip [id number] 12/13/2020 Social History Smoking Status Code Start Date End Date Former smoker [id number] Patient Decision Aids Unknown or Not Available. Discharge Instructions You were admitted to [facility] on 12/13/2020 22:02 with a principal diagnosis of Pain in right hip You were discharged from [facility] on 12/13/2020 22:02 Should you have any questions prior to [...]
--- OUTSIDE RECORDS SUMMARY | 2023-05-26 12:07 | XMS_ITS | CCD ---
Author Name Unknown Address [address] [place] [address] [phone] Organization Unknown Address [address] [place] [address] [phone] Care Team Providers Care Field Operations Supervisor Name Role Phone BRIANA PEREIRA, WINSTON LO Attending Physician [phone] BRIANA PEREIRA, WINSTON LO Er Physician [phone] Vital Signs Unknown or Not Available. Allergies Unknown or Not Available. Procedures Unknown or Not Available. History of Immunizations Unknown or Not Available. Problems Problem Code Start Date Resolved Date Status Pathological fracture of rig ht humerus 79309022522670500 Active Pathological fracture of rig ht rib 62993206163853999 Active Metastasis to bone 63676025 Active Renal cell carcinoma 512174188 Acti ve Cancer associated pain 45140934212436 Active CARPAL TUNNEL SYNDROME 10577668 02/05/2021 Re solved Results COMPREHENSIVE METABOLIC PANE L (CMP) - Collect Date/Time: 01/11/2021 22:41 Test Name Code Test Result Test Units Test Ref Rang e GLUCOSE 2345-7 101 mg/dL L=70 H=116 BUN 3094-0 15 mg/dL L=6 H=25 CREATININE 2160-0 1.74 mg/dL L=0.67 H=1.17 SODIUM SERUM 2951-2 141 mmol/L L=136 H=145 POTASSIUM SERUM 2823-3 4.1 mmol/L L=3.4 H=5 .2 CHLORIDE SERUM 2075-0 102 mmol/L L=96 H=110 CARBON DIOXIDE (CO2) 2028-9 27 mmol/L L=22 H=34 ANION GAP 36323-3 12.4 mmol/L CALCIUM SERUM 08216-4 10.8 mg/dL L=8.2 H=10. 2 BILIRUBIN TOTAL 1975-2 0.8 mg/dL L=0.0 H=1 .3 ALK. PHOS. 6768-6 179 U/L L=46 H=116 SGOT (AST) 1920-8 20 U/L L=15 H=37 SGPT (ALT) 1742-6 37 U/L L=12 H=78 TOTAL PROTEIN 2885-2 8.1 gm/dL L=6.0 H=8.0 ALBUMIN 1751-7 3.9 gm/dL L=3.4 H=5.0 AGE 70 years eGFR (non-Afr.Amer.) 77448-8 39 mL/min eGFR (Afr-[place]) 58458-2 47 mL/min GLUCOSE FINGER/HEEL CAPILLAR Y - Collect Date/Time: 01/12/2021 00:29 Test Name Code Test Result Test Units Test Ref Rang e GLUCOSE CAP 80 mg/dL L=70 H=116 TROPONIN-I ADM. - Collect Da te/Time: 01/11/2021 22:41 Test Name Code Test Result Test Units Test Ref Rang e TROPONIN-I 49942-7 <0.017 ng/mL L=0.000 H=0.06 0 CBC W/ DIFFERENTIAL - Collec t Date/Time: 01/11/2021 22:41 Test Name Code Test Result Test Units Test Ref Rang e WBC 6690-2 7.13 th/cmm L=5.00 H=10.00 NEUT % 59.0 % L=40.0 H=80.0 LYMPH % 24.8 % L=10.0 H=50.0 MONO % 56791-3 12.8 % L=2.0 H=12.0 EOS % 2.2 % L=0.0 H=8.0 BASO % 0.8 % L=0.0 H=3.0 IG % 2514-8 0.4 % L=0.0 H=1.1 NRBC % 09057-6 0.0 % L=0.0 H=0.0 NEUT abs count 751-8 4.2 th/cmm L=1.6 H=8. 4 LYMPH abs count 731-0 1.8 th/cmm L=1.5 H=4 .0 MONO abs count 742-7 0.9 th/cmm L=0.2 H=1. 0 EOS abs count 711-2 0.2 th/cmm L=0.0 H=0.5 BASO abs count 704-7 0.1 th/cmm L=0.0 H=0. 2 IG abs count 62016-0 0.0 th/cmm L=0.0 H=0.1 NRBC abs count 77730-4 0.0 mil/cmm L=0.0 H=0. 0 RBC 789-8 4.29 mil/cmm L=4.30 H=6.20 HEMOGLOBIN 718-7 13.6 gm/dL L=13.0 H=17.0 HEMATOCRIT 4544-3 42 % L=45 H=52 MCV 787-2 97 fL L=82 H=92 MCH 785-6 31.7 pg L=27.0 H=31.0 MCHC 786-4 32.7 % L=32.0 H=36.0 RDW-SD 788-0 45.1 fL L=39.0 H=49.0 PLATELET COUNT 777-3 184 th/cmm L=150 H=45 0 Active Medications Medication Code Dose Units Frequency Route Modificatio n Start Date/Time Acetaminophen 500MG Oral Tablet 654166 2 TABLET NEEDED THREE TIMES A DAY ORAL 02/14/2021 14:16 Prescription Detail TAKE 2 TABLET ORAL NEEDED THREE TIMES A DAY Aspirin 81MG Oral Tablet, Enteric Coated 309963 81 MILLIGRAMS DAILY ORAL 01/18 14:15 Prescription Detail TAKE 81 MILLIGRAMS ORAL DAILY Atorvastatin Calcium 80MG Oral Tablet 382138 80 MILLIGRAMS BEDTIME ORAL 021 14:15 Prescription Detail TAKE 80 MILLIGRAMS ORAL BEDTIME busPIRone 15MG Oral Tablet 452879 1.5 TABLET TWICE A DAY ORAL 02/14/2021 14:15 Prescription Detail TAKE 1.5 TABLET ORAL TWICE A DAY Citalopram 40MG Oral Tablet 827002 40 MILLIGRAMS DAILY ORAL 14:15 Prescription Detail TAKE 40 MILLIGRAMS ORAL DAILY fentaNYL Transdermal System 25MCG/1HR Transdermal Patch, Extended Release 388953 25 MICROGRAM EVERY 72 HOURS TRANSDERMAL 02/14/2021 14:15 Prescription Detail APPLY 25 MICROGRAM TRANSDERMAL EVERY 72 HOURS glipiZIDE 5MG Oral Tablet 036540 5 MILLIGRAMS EVERY EVENING ORAL 02/14/2021 14:15 Prescription Detail TAKE 5 MILLIGRAMS ORAL EVERY EVENING HYDROmorphone HCl 4MG Oral Tablet 464620 1 TABLET NEEDED EVERY 4 HOURS ORAL 02/14/2021 14:15 Prescription Detail TAKE 1 TABLET ORAL NEEDED EVERY 4-6 H OURS FOR PAIN Jardiance 25MG Oral Tablet 3145538 25 MILLIGRAMS DAILY ORAL 021 14:15 Prescription Detail TAKE 25 MILLIGRAMS ORAL DAILY Metoprolol Succinate 25MG Oral Tablet, Extended Release 308428 25 MILLIGRAMS DAILY ORAL 14:15 Prescription Detail TAKE 25 MILLIGRAMS ORAL DAILY Mirtazapine 15MG Oral Tablet 560750 15 MILLIGRAMS BEDTIME ORAL 14:15 Prescription Detail TAKE 15 MILLIGRAMS ORAL BEDTIME Omeprazole 20MG Oral Capsule, Delayed Release 090888 20 MILLIGRAMS DAILY ORAL 14:15 Prescription Detail TAKE 20 MILLIGRAMS ORAL DAILY fentaNYL Transdermal System 100MCG/1HR Transdermal Patch, Extended Release 231362 100 MICROGRAM EVERY 72 HOURS TRANSDERMAL 02/14/2021 14:14 Prescription Detail APPLY 100 MICROGRAM TRANSDERMAL EVERY 72 HOURS Senna Lax 8.6MG Oral Tablet 272424 8.6 MILLIGRAMS TWICE A DAY ORAL 02/14/2021 14:14 Prescription Detail TAKE 8.6 MILLIGRAMS ORAL TWICE A DAY Valium 5MG Oral Tablet 437717 1 TABLET NEEDED THREE TIMES A DAY ORAL 02/14/2021 14:14 Prescription Detail TAKE 1 TABLET ORAL NEEDED THREE TIMES A DAY FOR MUSCLE SPASM OR ANXIETY PEG 3350 17GM/1Dose Oral Powder for Solution 690316 17 GRAMS NEEDED DAILY ORAL 02/14/2021 14:13 Prescription Detail TAKE 17 GRAMS ORAL NEEDED DAILY FOR C ONSTIPATION Medications Administered During Visit Unknown or Not Available. 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 Discharge Instructions You were admitted to [facility] on 01/11/2021 22:24 with a principal diagnosis of Pathological fracture in neoplastic disease, left shoulder, initial encounter for fracture You had the following tests done:GLUCOSE FINGER/HEEL CAPILLARYCBC W/ DIFFERENTIALCOMPREHENSIVE METABOLIC PANEL (CMP)TROPONIN-I ADM. You were discharged from [facility] on 01/12/2021 02:03 Should you have any questions prior to discharge, please contact a member of your healthcare team. If you have left the hospital and have any questions, please contact your primary care physician. Chief Complaint and Reason For Visit Chief Complaint Date of Onset BODY ACHES Function Status Unknown or Not Available. Plan of Care Unknown or Not Available. Referral/Transition of Care Unknown or Not Available.
[2023-05-26 12:08] VITALS: BP 115/70; PULSE 87; RESP 19; TEMP 37.1; O2SAT 92
--- OUTSIDE RECORDS SUMMARY | 2023-05-26 12:08 | XMS_ITS | CCD ---
Author Name Unknown Address [address] [place] [address] [phone] Organization Unknown Address [address] [place] [address] [phone] Care Team Providers Care Electronic News Gathering Camera Person Name Role Phone CLIVE HALL MD Attending Physician [phone] Vital Signs Unknown or Not Available. Allergies Unknown or Not Available. Procedures Unknown or Not Available. History of Immunizations Unknown or Not Available. Problems Problem Code Start Date Resolved Date Status Pathological fracture of rig ht humerus 05973892532864508 Active Pathological fracture of rig ht rib 57940978042942983 Active Metastasis to bone 16992639 Active Renal cell carcinoma 698741595 Acti ve Cancer associated pain 72327207797854 Active CARPAL TUNNEL SYNDROME 95884365 02/05/2021 Re solved Results Unknown or Not Available. Active Medications Medication Code Dose Units Frequency Route Modificatio n Start Date/Time Acetaminophen 500MG Oral Tablet 721188 2 TABLET NEEDED THREE TIMES A DAY ORAL 02/14/2021 14:16 Prescription Detail TAKE 2 TABLET ORAL NEEDED THREE TIMES A DAY Aspirin 81MG Oral Tablet, Enteric Coated 954957 81 MILLIGRAMS DAILY ORAL 01/18 14:15 Prescription Detail TAKE 81 MILLIGRAMS ORAL DAILY Atorvastatin Calcium 80MG Oral Tablet 223641 80 MILLIGRAMS BEDTIME ORAL 021 14:15 Prescription Detail TAKE 80 MILLIGRAMS ORAL BEDTIME busPIRone 15MG Oral Tablet 235041 1.5 TABLET TWICE A DAY ORAL 02/14/2021 14:15 Prescription Detail TAKE 1.5 TABLET ORAL TWICE A DAY Citalopram 40MG Oral Tablet 687892 40 MILLIGRAMS DAILY ORAL 14:15 Prescription Detail TAKE 40 MILLIGRAMS ORAL DAILY fentaNYL Transdermal System 25MCG/1HR Transdermal Patch, Extended Release 697877 25 MICROGRAM EVERY 72 HOURS TRANSDERMAL 02/14/2021 14:15 Prescription Detail APPLY 25 MICROGRAM TRANSDERMAL EVERY 72 HOURS glipiZIDE 5MG Oral Tablet 243579 5 MILLIGRAMS EVERY EVENING ORAL 02/14/2021 14:15 Prescription Detail TAKE 5 MILLIGRAMS ORAL EVERY EVENING HYDROmorphone HCl 4MG Oral Tablet 535472 1 TABLET NEEDED EVERY 4 HOURS ORAL 02/14/2021 14:15 Prescription Detail TAKE 1 TABLET ORAL NEEDED EVERY 4-6 H OURS FOR PAIN Jardiance 25MG Oral Tablet 9727606 25 MILLIGRAMS DAILY ORAL 021 14:15 Prescription Detail TAKE 25 MILLIGRAMS ORAL DAILY Metoprolol Succinate 25MG Oral Tablet, Extended Release 449419 25 MILLIGRAMS DAILY ORAL 14:15 Prescription Detail TAKE 25 MILLIGRAMS ORAL DAILY Mirtazapine 15MG Oral Tablet 439189 15 MILLIGRAMS BEDTIME ORAL 14:15 Prescription Detail TAKE 15 MILLIGRAMS ORAL BEDTIME Omeprazole 20MG Oral Capsule, Delayed Release 768320 20 MILLIGRAMS DAILY ORAL 14:15 Prescription Detail TAKE 20 MILLIGRAMS ORAL DAILY fentaNYL Transdermal System 100MCG/1HR Transdermal Patch, Extended Release 718449 100 MICROGRAM EVERY 72 HOURS TRANSDERMAL 02/14/2021 14:14 Prescription Detail APPLY 100 MICROGRAM TRANSDERMAL EVERY 72 HOURS Senna Lax 8.6MG Oral Tablet 203337 8.6 MILLIGRAMS TWICE A DAY ORAL 02/14/2021 14:14 Prescription Detail TAKE 8.6 MILLIGRAMS ORAL TWICE A DAY Valium 5MG Oral Tablet 461934 1 TABLET NEEDED THREE TIMES A DAY ORAL 02/14/2021 14:14 Prescription Detail TAKE 1 TABLET ORAL NEEDED THREE TIMES A DAY FOR MUSCLE SPASM OR ANXIETY PEG 3350 17GM/1Dose Oral Powder for Solution 957400 17 GRAMS NEEDED DAILY ORAL 02/14/2021 14:13 Prescription Detail TAKE 17 GRAMS ORAL NEEDED DAILY FOR C ONSTIPATION Medications Administered During Visit Unknown or Not Available. Encounters Encounter Diagnosis Diagnosis Code Start Date Weakness R531 12/07/2020 Social History Smoking Status Code Start Date End Date Former smoker [id number] Patient Decision Aids Unknown or Not Available. Discharge Instructions You were admitted to [facility] on 12/07/2020 00:04 with a principal diagnosis of Weakness You were discharged from [facility] on 12/07/2020 00:04 Should you have any questions prior to [...]
[2023-05-26 12:12] VITALS: BP 115/70; PULSE 87; RESP 19; TEMP 37.1; O2SAT 87
[2023-05-26] MEDS: Ondansetron O.D.T. 4 MG TABEF 8 MG PO (12:59)
[2023-05-26] MEDS: LORazepam 1 MG TAB 0.5 MG PO ×2 (14:12→20:38)
--- NOTE | 2023-05-26 15:18 | CHAPLAIN ---
Oswaldo is here as a hospice respite patient. He currently lives in [place] with his daughter. Dr. Carpenter and his daughter were with Oswaldo when I stopped. I introduced myself and explained my role. Oswaldo did not seem interested in spiritual support, but asked for help with the TV remote. Once I got some advice from the clinical coordinator, I was able to help Oswaldo with the r
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
--- NOTE | 2023-05-26 15:21 | CHAPLAIN ---
Oswaldo is here as a hospice patient for respite care. His daughter and Dr. Carpenter were with him when I visited. Oswaldo lives in [place] with his daughter. I introduced myself and explained my role. Oswaldo was not interested in spiritual support but asked for help with the remote. After getting instructions from the clinical coordinator, I was able to help Oswaldo with the remote. He also asked for vanilla ice cream. We're out of vanilla, but someone is order more for Oswaldo Chacon said he likes to be awake at odd hours during the night and watch tv. And he likes to eat at odd hours. Dr. Carpenter said she noted that in is dietary chart. Oswaldo's daughter said she'll likely go home this afternoon because of the forecast for bad weather later today. I offered to provided visits and support for Oswaldo and his daughter if they are interested.
[2023-05-26] MEDS: LORazepam 2 MG/ML VIAL IV/SC (16:10)
[2023-05-26 19:30] VITALS: RESP 16
[2023-05-26] MEDS: guaiFENesin 600 MG TABCR PO (20:38)
[2023-05-26] MEDS: busPIRone 15 MG TAB 30 MG PO (20:38)
[2023-05-26] MEDS: Mirtazapine 15 MG TAB PO (21:31)
[2023-05-26 21:32] VITALS: PULSE 91; RESP 16; O2SAT 93
[2023-05-26] MEDS: Mometasone 220 MCG 14 DOSE INHALER 2 PUFF IH (21:38)
[2023-05-27] MEDS: LORazepam 1 MG TAB 0.5 MG PO ×4 (00:54→20:30)
[2023-05-27 05:18] VITALS: PULSE 100; RESP 2; RESP 24; RESP 3; RESP 5; RESP 9; O2SAT 89
[2023-05-27] MEDS: Albuterol/Ipratropium 3 ML UPD VIAL (05:18)
[2023-05-27 05:25] VITALS: PULSE 94; RESP 2; RESP 20; RESP 5; RESP 9; O2SAT 90
[2023-05-27 06:00] VITALS: PULSE 90; RESP 16; O2SAT 92
[2023-05-27] MEDS: Mometasone 220 MCG 14 DOSE INHALER 2 PUFF IH ×2 (08:14→20:58)
[2023-05-27] MEDS: Omeprazole 20 MG CAPCR PO (08:44)
[2023-05-27] MEDS: Tamsulosin 0.4 MG CAPCR 0.8 MG PO (08:44)
[2023-05-27] MEDS: Citalopram 20 MG TAB 40 MG PO (08:45)
[2023-05-27] MEDS: predniSONE 5 MG TAB PO (08:46)
[2023-05-27] MEDS: Furosemide 20 MG TAB PO (08:46)
[2023-05-27] MEDS: guaiFENesin 600 MG TABCR PO ×2 (08:46→20:30)
[2023-05-27] MEDS: diazePAM 5 MG TAB PO (08:46)
[2023-05-27] MEDS: busPIRone 15 MG TAB 30 MG PO ×2 (08:47→20:30)
--- NOTE | 2023-05-27 10:49 | CMPROGNOTE_ITS ---
Date of service: 05/27/23 Time of Service: 10:49 Care Management Progress Note Progress Note Text Progress Note Text: S/O: Oswaldo was sleeping when CM attempted to meet with him, and did not wake him. He was seen by hospice today, who stated that he will remain on respite until Thursday, unless he declines rapidly over the next few days, in which case he will transition to hospice symptom management. CM will continue to follow. A: Oswaldo is a 73 year old male admitted to [facility] on 05/26/23 for hospice respite. P: Oswaldo is at [facility] for a five day respite, on hospice. He lives in [place] and his daughter is his primary caregiver. He will return home with a resumption of hospice support and caregiving by his daughter. Hospice has inquired at [facility] for him to transition to SNF from the community. If a bed becomes available while he is here, he may go to [facility] upon discharge. CM will continue to follow.
[2023-05-27] MEDS: Ondansetron O.D.T. 4 MG TABEF 8 MG PO ×2 (13:10→20:31)
--- NOTE | 2023-05-27 13:24 | PHA.REVIEW2 ---
Pharmacy Admission Review Admission Clinical Review Admission Pharmacy Review: Delirium (Acute) Generalized weakness (Acute) Supraclavicular mass (Acute) Cancer related pain (Acute) Hospice care (Acute) Clear cell carcinoma of right kidney (Acute) Irritability (Acute) Hx pathological fracture (Acute) Cancer, metastatic to bone (Acute) lithium Allergy (Verified 01/22/21 09:29) Resuscitation Status DNR/DNI Height 5 ft 6 in Weight 104.78 kg Comments Comments/Follow Ups: Hospice Respite Patient Pharmacy Admission Review Renal Dosing Medications needing adjustments: Reviewed (CrCl 69.86 mL/min) Anticoagulation DVT Prophylaxis: N/A (None at this time) Opiate Usage Evaluate Pain Scale/Pains Meds: Reviewed (Hospice pain medication) Scheduled Bowel Reg ordered if on Opiates?: Yes (Bisacodyl, Miralax) Relevant Labs Electrolytes, C-Reactive P, ESR: N/A (Hospice) Cardiac Review BP, HR, EF%: Reviewed (WNL, NC 3+) QTc Review QTc: N/A (No EKG in patients file) IV to PO Switch IV Medications: Reviewed Home Meds Home Med List reviewed: Reviewed Current Meds Current Medication Order Review: Reviewed Comments Comments/Follow Ups: Hospice Respite Patient
--- NOTE | 2023-05-27 13:57 | W.PM.PROGNOT ---
Date of Service Date of service: 05/27/23 Time of Service: 13:57 Assessment and Plan Assessment and plan (1) Anxiety: Status: Chronic Assessment and plan: Chronic problem for Oswaldo. Life long. On multiple psych meds prior to his cancer diagnosis. Ordered both oral and IV lorazepam. Prone to panic attacks. He does not feel anxious at this time, appears relaxed. (2) Cancer related pain: Status: Acute Assessment and plan: On hydromorphone pump via PICC line at home. Dose was increased to 17 mg/hr on 05/24 with a 12 mcg bolus q 15 minutes. As he has an IV access, he theoretically can increase his dose much more for comfort. Feels his pain is well managed at this time, not requiring frequent boluses. Follow titration protocol in the orders, please. (3) Hospice care: Status: Acute Assessment and plan: Admitted to hospital on hospice respite, which means that he should be discharged home on Thursday. There is a chance that he will rapidly decline over the next few days. If he does, will change him over to symptom management as he had previously discussed wanting palliative sedation if our usual treatments do not work to relieve his pain and anxiety. (4) Clear cell carcinoma of right kidney: Status: Acute Assessment and plan: Diagnosed 02/14/2021. Oswaldo has LONG exceeded his life expectancy. He has widely metastatic disease burden. (5) Irritability: Status: Acute Assessment and plan: Part of his anxiety and under-treated pain syndrome. Will continue to address in multiple ways. He hates being outside of his own home. Very uncomfortable in a hospital. Try non-pharm interventions first. (6) Hx pathological fracture: Status: Acute Assessment and plan: At time of diagnosis. At risk for more, especially as he is unsteady on his feet. (7) Cancer, metastatic to bone: Status: Acute Assessment and plan: Cause of his cancer pain, primarily. (8) Supraclavicular mass: Status: Acute Assessment and plan: Met from his kidney cancer. (9) Generalized weakness: Status: Acute Assessment and plan: Part of his cancer progression. (10) Delirium: Status: Acute Assessment and plan: Not noted today but has been at times at home. At high risk for recurrence. Haldol ordered. If ineffective, would suggest risperidone concentrate 1 mg tid scheduled. Subjective Subjective Interval history since last seen: Oswaldo was seen at the hospital. He is admitted for a 5 day respite stay. He was sleepy during the visit. He pushed the bolus button once during the visit. He feels his is fairly well controlled. He does not want to adjust the rate, it is currently running at 17 mg/hr. He is not using a lot of boluses. He has had 3 since it was cleared. He has had a BM since he has been at the hospital. He reports that he is eating small amounts. He is 1 assist OOB to the BR with walker. He denies feeling anxious. Exam Narrative Exam Narrative: General: pleasant, older man, laying in hospital bed with TV off. He awoke when spoken to but went right back to sleep. Oriented to person, place, and situation. HEENT: normocephalic, atraumatic, EOMI, mmm Neck: large, firm Supraclavicular LN on right Cardiovascular: heart sounds regular Respirations: appear unlabored. lungs sound clear on limited anterior and lateral exam. GI: +BS, abd soft, nontender on gentle palpation. Extremities: trace pitting edema to BLEs. Objective Last Vital Signs Temp 37.1 C 05/26/23 12:12 Pulse 90 05/27/23 06:00 Resp 16 05/27/23 06:00 BP 115/70 05/26/23 12:12 Pulse Ox 92 05/27/23 06:00 Time Spent with Patient Time Spent with Patient: 35-49 minutes Time was spent: preparing to see the patient(eg.review tests), referring, communicating with other health pediatric acute care unit nurse and counseling the patient
[2023-05-27] MEDS: Senna TAB 2 TAB PO (21:43)
[2023-05-27] MEDS: Mirtazapine 15 MG TAB PO (21:43)
[2023-05-27 22:09] VITALS: PULSE 73; RESP 18; O2SAT 94
[2023-05-28] MEDS: LORazepam 1 MG TAB 0.5 MG PO ×2 (01:19→11:51)
[2023-05-28 01:43] VITALS: PULSE 98; RESP 2; RESP 24; RESP 3; RESP 5; RESP 7; RESP 8; RESP 9; O2SAT 89
[2023-05-28] MEDS: Albuterol/Ipratropium 3 ML UPD VIAL (01:43)
[2023-05-28 01:50] VITALS: PULSE 89; RESP 18; RESP 2; RESP 5; RESP 9; O2SAT 99
[2023-05-28] MEDS: Ondansetron O.D.T. 4 MG TABEF 8 MG PO ×2 (03:53→11:51)
[2023-05-28] MEDS: Mometasone 220 MCG 14 DOSE INHALER 2 PUFF IH ×2 (08:17→20:40)
[2023-05-28] MEDS: predniSONE 5 MG TAB PO (08:35)
[2023-05-28] MEDS: busPIRone 15 MG TAB 30 MG PO (08:35)
[2023-05-28] MEDS: Citalopram 20 MG TAB 40 MG PO (08:35)
[2023-05-28] MEDS: Tamsulosin 0.4 MG CAPCR 0.8 MG PO (08:35)
[2023-05-28] MEDS: guaiFENesin 600 MG TABCR PO (08:35)
[2023-05-28] MEDS: Omeprazole 20 MG CAPCR PO (08:35)
[2023-05-28] MEDS: diazePAM 5 MG TAB PO (08:35)
[2023-05-28] MEDS: Furosemide 20 MG TAB PO (08:35)
[2023-05-28] MEDS: Lidocaine 2% Jelly 11 ML SYR UR (11:52)
[2023-05-28] MEDS: Bisacodyl 10 MG SUPP PR (12:54)
--- NOTE | 2023-05-28 13:29 | CMPROGNOTE_ITS ---
Date of service: 05/28/23 Time of Service: 13:29 Care Management Progress Note Progress Note Text Progress Note Text: S/O: Oswaldo was busy with staff when CM attempted to meet with him. Per report, he has been sleeping a lot more than normal while here. He engages minimally with staff; per report he is anxious at baseline and does not like to be away from home. CM will continue to follow. A: Oswaldo is a 73 year old male admitted to [facility] on 05/26/23 for hospice respite. P: Oswaldo is at [facility] for a five day respite, on hospice. He lives in [place] and his daughter is his primary caregiver. He will return home with a resumption of hospice support and caregiving by his daughter. Hospice has inquired at [facility] for him to transition to SNF from the community. If a bed becomes available while he is here, he may go to [facility] upon discharge. CM will continue to follow.
[2023-05-28] MEDS: LORazepam 2 MG/ML VIAL IV/SC ×6 (14:09→23:21)
[2023-05-28] MEDS: Acetaminophen 500 MG TAB PO (14:10)
[2023-05-28] MEDS: Haloperidol 1 MG TAB PO (14:42)
--- NOTE | 2023-05-28 15:39 | CHAPLAIN ---
Oswaldo was sitting at the edge of his bed wrapped in a blanket when I visited. He is a hospice patient here on respite. I offered him a new warm blanket and he agreed to that. (Yesterday he told Bev Ready and I that he likes to be cool, so I wasn't sure he'd want a warm blanket.) He did not seem to want to engage in further conversation, but responded to the few questions I asked. He lives in [place] with his daughter. He is here on respite through Thursday.
[2023-05-28] MEDS: Normal Saline Flush 10 ML SYR IVP ×4 (17:17→23:21)
[2023-05-29] MEDS: LORazepam 2 MG/ML VIAL IV/SC ×5 (04:09→22:47)
--- NOTE | 2023-05-29 09:20 | CMPROGNOTE_ITS ---
Date of service: 05/29/23 Time of Service: 09:20 Care Management Progress Note Progress Note Text Progress Note Text: S/O: Oswaldo was lying in bed when CM met with him. He remains on a hydromorphone pain pump, which has been increased for his comfort. He has been requiring IV lorazepam for anxiety; he has struggled with crippling anxiety his entire life, which has increased while in the hospital, per report. Per MD, he will be changed to symptom management today, as he will be started on a benzodiazepine drip, which cannot be accommodated at home. His daughter, Adam provided consent, as he is no longer able to communicate; PACHECO was in the room and witnesse d her signature for palliative sedation. Adam was calling family to come and visit Oswaldo, as he will remain at [facility] for end of life care. Adam stated that her father has made final arrangements with [facility] in [place], [place]. CM will continue to support Oswaldo and his family during this difficult time. A: Oswaldo is a 73 year old male admitted to [facility] on 05/26/23 for hospice respite. P: Oswaldo will remain at [facility] for end of life care. He is currently receiving palliative sedation, which were his wishes, if his symptoms could not otherwise be managed, which has been the case during this hospitalization. His symptoms cannot be managed at home, therefore he was changed to symptom management today. His daughter, Adam was present today, and he has had several other visitors. He made his own final arrangements with [facility] services, per his daughter. CM will continue to support Oswaldo and his family during this difficult time.
[2023-05-29] MEDS: Normal Saline Flush 10 ML SYR IVP ×5 (10:43→22:47)
--- NOTE | 2023-05-29 11:10 | NUR.NOTE ---
Pt is declining anything to eat or drink, asking for his dtr. Explained that she is sleeping and will come to see him when she wakes up. He closed his eyes and did not answer anymore nursing questions. He was restless and trying to take all bed linens off, gave 1mg ativan for agitation/anxiety. Will monitor closely. Nursing Note:
[2023-05-29] MEDS: Ondansetron O.D.T. 4 MG TABEF 8 MG PO (13:07)
--- NOTE | 2023-05-29 14:38 | PGE_ITS ---
Date of Service Date of service: 05/29/23 Time of Service: 13:00 Assessment and Plan Assessment and plan (1) Generalized weakness: Status: Acute Assessment and plan: unable to stand, or move independently part of his active dying process (2) Supraclavicular mass: Status: Acute Assessment and plan: due to metastatic rcc very large, firm, fixed, (3) Anxiety: Status: Chronic Assessment and plan: life long problems usually on about 9-12 mg of lorazepam daily equivalent (4) Cancer related pain: Status: Acute Assessment and plan: on hydromorphone pump was requiring multiple boluses, dose increased per titration protocol (5) Hospice care: Status: Acute Assessment and plan: changing from RESPITE care to SYMPTOM MANAGEMENT TODAY We are unable to run midazolam drips at home. Initially plan had been for him to stay for 5 nights and go home, but he has declined dramatically since admission. Appears to only have hours to days to live. Discussed with his daughter Moisés. He has required multiple IV lorazepam doses toda to control his myoclonus and to treat his manager intermediate underlying anxiety disorder. He gets quite restless between doses, which do not seem to last as long as expected. He will be more comfortable with Unable to take his usual oral lorazepam and diazepam as he is no longer alert enough to swallow. 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 Palliative sedation order paperwork signed. Jackie Benitez, PARTY PLAN SALES UNIT SALES LEADER to be taking over Oswaldo's care tomorrow and through weekend. Case and plan discussed with her in detail. (6) Clear cell carcinoma of right kidney: Status: Acute Assessment and plan: Widely metastatic. (7) Hx pathological fracture: Status: Acute (8) Cancer, metastatic to bone: Status: Acute (9) Generalized anxiety disorder: Status: Acute (10) Dying care: Status: Acute (11) Myoclonus: Status: Acute Assessment and plan: To be treated by midazolam drip. Subjective Subjective Patient reports: pain is less, no bowel movement and shortness of breath; denies feels better, tolerating liquids well or tolerating a regular diet Interval history since last seen: I admitted Oswaldo on Friday 05/26 for a 5 night hospice respite stay. His daughter Moisés is his DPOA/health care agent. She was present during my visit on admission and again today. He has declined dramatically every day of his admission. He is only minimally responsive now. His hydromorphone pain pump has been increased. He now looks comfortable most of the time. He is getting IV lorazepam only as he is no longer able to take anything by mouth. He is having frequent myoclonus with his recent opioid dose increases. He has a long history of severe general anxiety disorder and has been on high doses of benzodiazepines for years. In the past, he was an active alcoholic. He was diagnosed with stage IV Renal Cell Carcinoma in January 2021. He received one dose of chemo and then opted to stop cancer-directed treatment. Oncology told him he would not live to see Fli[place] 2020. He came on hospice in March 07. He has been on hospice continuously since then. On this admission, he has moved closer to on each day. He is now unable to communicate. He does not have a furrowed brow or grimace. He has no other non-verbal signs of pain. He is dry. He is twitching regularly. He looks slightly diaphoretic and disheveled. We discussed treating him with a benzodiazepine drip, with midazolam. I reviewed the benefits and dangers of starting this drip. His daughter Moisés and I reviewed the palliative sedation permission slip together, in the presence of CM Dianna Rothman and primary nurse Lilia Gibson RN. Exam Narrative Exam Narrative: Oswaldo is minimally responsive, lying in bed, using abdominal muscles to breathe, with cyanotic fingers. He has frequent myoclonus. Head: NCAT, balding Eyes anicteric heent dry mm neck very large approx 17 cm in diameter supraclavicular ln, firm, non mobile lungs ctab decreased breath sounds throughout using paradoxical abdominal movement to breathe, heart tachycardic, irregular abd obese soft NT ND + bs, hypoactive ext trace edema (usually worse), + cyanotic nails and nail beds neuro + myoclonus, minimally responsive, unable to hold a conversation, non verbal psych unable to assess due to his change in mental status skin dry, some nervous excoriations on scalp, arms gu mathur in place, draining concentrated urine Objective Last Vital Signs Temp 98.8 F 05/26/23 12:12 Pulse 89 05/28/23 01:50 Resp 18 05/28/23 01:50 BP 115/70 05/26/23 12:12 Pulse Ox 99 05/28/23 01:50 Time Spent with Patient Time Spent with Patient: >50 minutes Time was spent: obtaining and/or reviewing separately otained hiistory, ordering medications,tests, procedures, referring, communicating with other health healthcare interpreter, counseling the patient (counseling patient's family) and care coordination
--- NOTE | 2023-05-29 15:57 | CHAPLAIN ---
Oswaldo is a hospice patient, here for respite however he has declined dramatically since being admitted. Today is not talking and is restless. Bev Carpenter, Hospice Supervisor Communications And Signals, has talked with Oswaldo's daughter Moisés and after considering all pieced of Oswaldo's care have decided to start palliative sedation after Oswaldo's two sons arrive this afternoon/early evening. When I met Oswaldo on 05/26 when he was admitted, he said he was not interested in parking supervisor visits. I stopped in a time or two in the next couple of days to see if I could get anything for him. Once he asked for a warm blanket. I visited today after Moisés arrived. She said I hope this doesn't go on and on too long for him. Oswaldo has not been able to speak to Moisés today. I assured her that it's likely that her voice is comforting to Oswaldo. His condition has changed a great deal since she saw him last. I'll be leaving to at 5 p.m. and let the oncoming central sterilization technician, Rev. Theresa Bullock know about Oswaldo and his kids.
[2023-05-29] MEDS: MIDAZOLAM 50 MG in Normal Saline 90 ML IV (16:42)
[2023-05-30] MEDS: MIDAZOLAM 50 MG in Normal Saline 90 ML 22 MG IV (01:43)
[2023-05-30] MEDS: MIDAZOLAM 50 MG in Normal Saline 90 ML 30 MG IV (05:50)
[2023-05-30] MEDS: MIDAZOLAM 50 MG in Normal Saline 90 ML 32 MG IV (09:21)
[2023-05-30 09:35] VITALS: BP 97/62; PULSE 111; RESP 18
[2023-05-30] MEDS: Haloperidol 5 MG/ML VIAL IM/IV (11:11)
[2023-05-30] MEDS: LORazepam 2 MG/ML VIAL IV/SC (11:11)
[2023-05-30] MEDS: Normal Saline Flush 10 ML SYR IVP ×3 (11:12→20:18)
--- NOTE | 2023-05-30 15:47 | NUR.NOTE ---
services are prepaid at [facility] in [place], [place], . Nursing Note:
[2023-05-30] MEDS: MIDAZOLAM 50 MG in Normal Saline 90 ML 34 MG IV ×2 (15:59→19:00)
--- NOTE | 2023-05-30 16:22 | NUR.NOTE ---
13:22 MAR should have a new bag of midazolam hung/100ml/50mg bag. The barcodes on the bags are not scanning. Nursing Note:
--- NOTE | 2023-05-30 18:28 | W.PM.PROGNOT ---
Date of Service Date of service: 05/30/23 Time of Service: 18:28 Assessment and Plan Assessment and plan (1) Generalized weakness: Status: Acute Assessment and plan: unable to stand, or move independently part of his active dying process (2) Supraclavicular mass: Status: Acute Assessment and plan: due to metastatic rcc very large, firm, fixed (3) Anxiety: Status: Chronic Assessment and plan: life long problems usually on about 9-12 mg of lorazepam daily equivalent (4) Cancer related pain: Status: Acute Assessment and plan: on hydromorphone pump Currently running at 19 mg/hr with 12 mg bolus q15m PRN. He required a bolus dose at the time of his visit. He appeared more comfortable after the bolus. (5) Hospice care: Status: Acute Assessment and plan: Oswaldo changed from RESPITE care to SYMPTOM MANAGEMENT yesterday. He required symptom management level of care due to: Inability to provide Palliative sedation at home. We cannot run midazolam drips at home. This is in the setting of him declining dramatically since admission. He is no longer able to take PO anxiety medications. He has severe myocolonus and can no longer take his oral diazepam. Intermittent IV lorazepam dosing has not proved to be effective to treat his symptoms. His life expectancy is measured in hours, less likely days. He has long outlived his initial life expectancy with metastatic renal cell cancer. He is unresponsive at this time and therefore unable to take anything by mouth. The plan is for him to continue on palliative sedation with midazolam with hydromorphone for pain control. If needed, propofol would be added to manage his symptoms. Plan discussed with Dr. Bev Carpenter, Hospice Water Softener Servicer. (6) Clear cell carcinoma of right kidney: Status: Acute Assessment and plan: Widely metastatic. He has long outlived his life expectancy. (7) Hx pathological fracture: Status: Acute (8) Cancer, metastatic to bone: Status: Acute (9) Generalized anxiety disorder: Status: Acute (10) Dying care: Status: Acute (11) Myoclonus: Status: Acute Assessment and plan: To be treated by midazolam drip. Subjective Subjective Interval history since last seen: Oswaldo was seen in his hospital room. He was admitted for hospice respite but transitioned to hospice symptom management yesterday when he was no longer able to take his PO diazepam and lorazepam. He continued to receive lorazepam by IV, however, he continued to appear uncomfortable and had severe myoclonus with the increasing opioid doses. The decision was made to initiate palliative sedation. He required symptom management level of care for this as palliative sedation cannot be provided at home. At the time of his visit, he appeared to be in respiratory distress. His Midazolam infusion was running at 17 mg/hr and the hydromorphone pump was at 19 mg/hr. During the visit, LNAs came in and repositioned him and his nurse gave him a bolus dose of hydromorphone. When I went back to check on him about 30 min later, he appeared to be resting comfortably and did not appear to be in respiratory distress. He is not responsive. He was alone in the room. Exam Narrative Exam Narrative: General: He is nonresponsive, lying in bed, appeared to be in respiratory distress initially but appeared to be more comfortable after bolus. HEENT: atraumatic, eyes closed, mm dry. Neck: very large (approx 17 cm in diameter) right supraclavicular LN, firm, non mobile. Lungs: increased respiratory secretions, abd breathing. Cardiovascular: tachycardic. Abdominal: hypoactive BS, large, round abd, soft. Extremities: no edema, +PP bilaterally : mathur in place, draining susanne urine Objective Last Vital Signs Temp 37.1 C 05/26/23 12:12 Pulse 111 H 05/30/23 09:35 Resp 18 05/30/23 09:35 BP 97/62 L 05/30/23 09:35 Pulse Ox 99 05/28/23 01:50 Time Spent with Patient Time Spent with Patient: 35-49 minutes Time was spent: ordering medications,tests, procedures, referring, communicating with other health career development facilitator and care coordination
[2023-05-30] MEDS: Glycopyrrolate 0.2 MG/1 ML VIAL IVP ×2 (20:17→23:05)
[2023-05-30] MEDS: MIDAZOLAM 50 MG in Normal Saline 90 ML 38 MG IV (21:52)
[2023-05-31] MEDS: MIDAZOLAM 50 MG in Normal Saline 90 ML 40 MG IV ×3 (00:30→06:09)
[2023-05-31] MEDS: Normal Saline Flush 10 ML SYR IVP ×3 (02:17→06:44)
[2023-05-31] MEDS: LORazepam 2 MG/ML VIAL IV/SC ×3 (02:17→06:44)
[2023-05-31] MEDS: Scopolamine 1 MG/3 DAYS PATCH TD (03:04)
[2023-05-31] MEDS: Atropine 1% Ophth Sol. 2 ML BTL SL ×5 (03:28→06:44)
--- NOTE | 2023-05-31 06:28 | NUR.NOTE ---
Nursing Note: Patient continues to be tachypneic/wincing/labored with respirations despite titration of hydromorphone as well as midazolam. Patient repositioned, oral care provided for patient comfort, PRN anticholinergic medications administered for excess secretion, patient continues to have respirations 28-36/minute. PRN lorazepam administered per JUL with some relief. CC notified, MD made aware, upper limit on midazolam gtt increased to 30mg/hr. Palliative midazolam program on pump has hard upper limit of 20mg/hr. This nurse advised to place pump in basic mode and titrate gtt by mL/hr. Clear labels placed on pump/tubing indicating drug/concentration of gtt, gtt titrated to 42mL/hr (21mg/hr) at 0625. Will continue to monitor and titrate to patient comfort.
--- NOTE | 2023-05-31 08:19 | W.PM.DDS ---
Date of service: 05/31/23 Time of Service: 08:08 Discharge Plan Disposition Patient Disposition: Discharge Details Reason For Visit: Hospice Respite for Metastatic RCC, Anxiety Admit Date/Time: 05/26/23 11:06 Admit Provider: Bev Carpenter Attending Provider: Bev Carpenter Primary Care Provider: Mimi Toussaint Hospital Course Hospital Course: admitted for respite on 05/26 changed to symptom management on 05/29 palliative sedation started on 05/29 due to devon needing to be on midazolam drip he had not been responding to his frequent lorazepam dosing and was no longer able to take his long-term diazepam orally he reached maximal doses of midazolam late yesterday I was called this am by my POTABLE WATER TREATMENT OPERATOR colleague Jackie Benitez who was concerned that he was still extremely uncomfortable. I came in to start him on a propofol drip which was next step in palliative sedation prototcol. I did consult with Dr Seda Valdez by phone prior to making this decision to start propofol. I had seen Devon this am upon arrival. He was in extremis, laboring to breathe, but not in obvious pain. I was at the computer ordering his propofol when nursing informed me that they thought he had at 8:08. I listened to his chest and pronounced him at 8:10 am. I called his daughter Moisés to let her know of her father's passing. I informed both Jackie Benitez and Seda Valdez on his . Jackie notified the supervising hospice nurse. [facility] nurses are speaking with count includes the [facility] and [facility]. Discharge Data Cause of : Metastatic renal cell carcinoma Discharge Sum: Prov Provider Primary care physician: Dr Mimi Toussaint, [facility] Admitting clinician: Bev Carpenter Attending physician on admission: Bev Carpenter Consults: 05/26/23 10:46 Manager Manufacturing Consult [CONS] Routine Consultation Status:: Follow-up needed Clarification:: Manage/follow per spec. Reason for consult:: Devon tends to be very anxious. Pronouncing clinician: Bev Carpenter Discharge Sum: Diag Contributing Factors (1) Generalized weakness: (2) Supraclavicular mass: (3) Anxiety: (4) Cancer related pain: (5) Hospice care: (6) Clear cell carcinoma of right kidney: (7) Hx pathological fracture: (8) Cancer, metastatic to bone: (9) Generalized anxiety disorder: (10) Dying care: (11) Myoclonus: Discharge Sum: Summary Summary Details: See hospital course. Additional Data Confirmation of as documented by pronouncing clinician: no pulse, no respirations and no heart sounds Family: contacted Additional persons at bedside: other (nurses) Attending/PCP notified?: Yes Was code activated?: No Autopsy requested?: No estate tax examiner notified?: No Organ bank notified?: Yes Advance directives: Yes Hospice patient?: Yes
== END 2023-05-31 08:10 | disposition expired | DRG 948 ==
PROVIDERS: Admitting Provider Family Medicine; PCP Family Medicine; Visit Provider Family Medicine
DX: G89.3 Neoplasm related pain (acute) (chronic) (principal); C64.1 Malignant neoplasm of right kidney, except renal pelvis; C79.51 Secondary malignant neoplasm of bone; C77.1 Secondary and unspecified malignant neoplasm of intrathoracic lymph nodes; Z51.5 Encounter for palliative care; F41.9 Anxiety disorder, unspecified; R45.4 Irritability and anger; Z87.311 Personal history of (healed) other pathological fracture; R53.1 Weakness; F41.1 Generalized anxiety disorder; G25.3 Myoclonus; G47.00 Insomnia, unspecified; K21.9 Gastro-esophageal reflux disease without esophagitis; F32.A Depression, unspecified; E11.42 Type 2 diabetes mellitus with diabetic polyneuropathy; E66.9 Obesity, unspecified; Z68.35 Body mass index [BMI] 35.0-35.9, adult; F10.91 Alcohol use, unspecified, in remission; I10 Essential (primary) hypertension; R63.0 Anorexia; R29.6 Repeated falls; Z91.81 History of falling; E78.5 Hyperlipidemia, unspecified
CPT/HCPCS: 00123; 94640; 94664; 94760; J1171; J1596; J1630; J2060; J2250; J7512; J7620